=== PATIENT | male | born 1975 | race Caucasian/White ===

== ENCOUNTER → 2019-04-08 08:43 | Outpatient (CLI) | payer OTHER, SELFPAY ==
[2019-04-08 10:03] LABS: Add Manual Diff / Slide Review NO; Basophils Absolute Auto 100 /uL (0-100); Basophils Percent Auto 1.4 % (0-2); Eosinophils Absolute Auto 300 /uL (0-450); Eosinophils Percent Auto 4.6 % (2-4); Hematocrit 45.4 % (41-53); Hemoglobin 15.4 g/dL (13.5-17.5); Lymphocytes Absolute Auto 1100 /uL (1100-4500); Lymphocytes Percent Auto 18.1 % (25-40); Mean Corpuscular Hemoglobin 29.3 PG (26-34); Mean Corpuscular Volume 86.4 fL (80-100); Monocytes Absolute Auto 400 /uL (0-900); Monocytes Percent Auto 6.5 % (3-14); Neutrophils Absolute Auto 4000 /uL (1500-7000); Neutrophils Percent Auto 69.4 % (50-75); Platelet Count 207 X10^3/uL (150-400); Red Blood Cell Count 5.25 X10^6/uL (4.5-5.9); Red Cell Distribution Width 12.9 % (11.6-14.8); White Blood Cell Count 5.8 X10^3/uL (4.5-11.0)
[2019-04-08 10:16] LABS: Alanine Aminotransferase 28 IU/L (21-72); Albumin 4.4 g/dL (3.5-5.0); Albumin Globulin Ratio 1.4 (1.0-2.8); Alkaline Phosphatase 104 U/L (38-126); Aspartate Aminotransferase 30 IU/L (17-59); Bilirubin Total 0.8 mg/dL (0.2-1.3); Blood Urea Nitrogen 16 mg/dL (9-20); Calcium 9.2 mg/dL (8.4-10.2); Carbon Dioxide 28 mmol/L (22-32); Chloride 101 mmol/L (98-107); Estimated Glomerular Filt Rate > 60.0 mL/min (>60); Globulin 3.1 g/dL (1.7-4.1); Glucose 98 mg/dL (70-100); HEMOLYSIS < 15 (0-50); Potassium 4.1 mmol/L (3.4-5.1); Sodium 139 mmol/L (137-145); Total Protein 7.5 g/dL (6.3-8.2)
== END ==
PROVIDERS: Visit Provider Internal Medicine Cardiovascular Disease
DX: R07.89 Other chest pain (principal); I10 Essential (primary) hypertension
CPT/HCPCS: 36415; 80053; 85025

== ENCOUNTER 2020-01-29 23:49 | Emergency (ER) | payer OTHER, SELFPAY ==
--- NOTE | 2020-01-29 23:58 | DI.RAD.S_ITS ---
PROCEDURE: XR RIBS LT MIN 3V W CXR1V INDICATIONS: severe left sided rib pain, felt pop TECHNIQUE: 2 views of the lower left ribs were acquired, along with a single view chest. COMPARISON: None. FINDINGS: Surgical changes and devices: None. Bones and chest wall: No displaced left rib fractures or dislocations. No suspicious bony lesions. Overlying soft tissues appear unremarkable. Lungs and pleura: Perihilar interstitial prominence is identified bilaterally. There is no lobar consolidation, effusion, or pneumothorax. Mediastinum: Mediastinal contours appear normal. Heart size is normal. IMPRESSION: 1. No displaced left rib fractures. 2. Probable mild pulmonary vascular congestion. Dictated by: Víctor Mulligan M.D. on 01/30/2020 at 7:43 Approved by: Víctor Mulligan M.D. on 01/30/2020 at 7:44
[2020-01-29 23:59] VITALS: BP 145/87; PULSE 93; RESP 22; TEMP 36.6; O2SAT 96
--- NOTE | 2020-01-30 01:18 | ED.BACK ---
HPI - Back Pain/Injury General Chief Complaint: Back Pain/Injury Stated Complaint: left side rib pain injured it 2 days ago Time Seen by Provider: 01/29/20 23:50 Source: patient Mode of arrival: Ambulatory Limitations: no limitations History of Present Illness HPI Narrative: 45-year-old male daily smoker with noncontributory medical history presents with his and the chief complaint of left side rib pain. He states he lifted his left arm up and over his head a day and a half ago and felt a pop and now has significant pain with deep breath or motion or palpation. He occasionally feels some clicking in the left side ribs. He denies any shortness of breath and has no hemoptysis. Denies numbness, tingling or weakness. He denies any history of the same. MD Complaint: other Onset (ago): day(s) Duration: constant Location: left upper back Severity: severe Quality: sharp Relieving factors: immobilization Exacerbating factors: movement, deep breaths and coughing/sneezing Context: while lifting Associated symptoms: denies other symptoms Treatments prior to arrival: cold therapy, heat therapy, NSAIDS and acetaminophen Related Data Previous Rx's Medication Instructions Recorded cyclobenzaprine 10 mg PO TID PRN #14 tab 01/30/20 ketorolac 10 mg PO Q6H PRN #14 tab 01/30/20 lidocaine [Lidoderm] 1 patch TOP DAILY #15 each 01/30/20 Allergies Allergy/AdvReac Type Severity Reaction Status Date / Time Sulfa (Sulfonamide Allergy Unknown Verified 01/30/20 00:02 Antibiotics) Review of Systems Constitutional Constitutional: Denies chills, Denies fatigue, Denies fever(s), Denies frequent falls, Denies lethargy and Denies weakness Eyes Eyes: Denies change in vision, Denies eye discharge, Denies irritation and Denies loss of vision ENT Ears, Nose, Mouth, and Throat: Denies change in voice, Denies dizziness, Denies neck pain, Denies sore throat and Denies throat swelling Cardiovascular Cardiovascular: Denies chest pain, Denies irregular heart rhythm, Denies lightheadedness, Denies palpitations, Denies dyspnea, Denies dyspnea on exertion and Denies orthopnea Comments: chest wall pain Respiratory Respiratory: Denies cough, Denies dyspnea, Denies dyspnea on exertion and Denies wheezing Gastrointestinal Gastrointestinal: Denies abdominal pain, Denies change in bowel habits, Denies diarrhea, Denies nausea and Denies vomiting Musculoskeletal Musculoskeletal: Denies neck pain and Denies numbness Integumentary/Breasts Skin/Breast: Denies pruritus, Denies erythema, Denies rash and Denies wounds Neurologic Neurologic: Denies behavioral changes, Denies confusion, Denies dizziness, Denies frequent falls, Denies loss of vision, Denies numbness and Denies weakness Psychiatric Psychiatric: Denies anxiety, Denies behavioral changes, Denies confusion, Denies depression, Denies homicidal ideation and Denies suicidal ideation Endocrine Endocrine: Denies fatigue, Denies flushing and Denies palpitations Hematologic/Lymphatic Hematologic/Lymphatic: Denies easy bruising Allergic/Immunologic Allergic/Immunologic: Denies urticaria, Denies throat swelling and Denies wheezing Patient History Social History Smoking Status: Current some day smoker Smoking Status: Current some day smoker alcohol intake frequency: a few times a month Substance Use Type: marijuana Exam Narrative Exam Narrative: GEN: AOx3 and in mild distress, patient obviously in pain splinting his left-sided ribs EYES: Pupils are equal, round, and reactive to light and accommodation. Extraoccular muscles are intact bilaterally. There is no subconjunctival hemorrhage or exudate. CHEST: Lungs are clear to auscultation bilaterally and free of wheezes, rales, or rhonchi. Heart rate is regular rhythm, there are no murmurs, clicks, rubs, or gallops. Sharp and stabbing pinpoint pain left lateral ribs. No crepitance, subcu emphysema, rash, redness, swelling or external manifestation of injury or disease ABD: Abdomen is soft and nontender. There is no guarding or rebound. Bowel sounds are normal in all 4 quadrants. There is no mass or organomegaly. EXT: Full painless ROM of all extremities with no loss of sensation or strength. SKIN: Warm, pink, and dry. No erythema or rash Initial Vital Signs Initial Vital Signs: Vital Signs Temperature 97.9 F 01/29/20 23:59 Pulse Rate 93 H 01/29/20 23:59 Respiratory Rate 22 01/29/20 23:59 Blood Pressure 145/87 H 01/29/20 23:59 Pulse Oximetry 96 01/29/20 23:59 Procedures Orthopedic Splinting/Casting Injury #1: Side: left Upper Extremity Immobilizer: sling/shoulder immobilizer Post splinting neuro exam: intact Post splinting vascular exam: intact Placed by: Nursing Course Orders Ordered: Discontinued Medications Hydrocodone Bitart/Acetaminophen (Vicodin 5/325 Prepack) 1 bottle MISC SEEINSTR ONE Stop: 01/30/20 01:15 Last Admin: 01/30/20 01:31 Dose: 1 bottle Documented by: MMCFARL Cyclobenzaprine HCl (Flexeril 10 Mg Prepack) 1 bottle MISC SEEINSTR ONE Stop: 01/30/20 01:15 Last Admin: 01/30/20 01:31 Dose: 1 bottle Documented by: MMCFARL Ketorolac Tromethamine (Toradol) 15 mg IV NOW ONE Stop: 01/30/20 01:15 Last Admin: 01/30/20 01:31 Dose: 15 mg Documented by: MMCFARL Lidocaine (Lidoderm) 1 each TOP NOW ONE Stop: 01/30/20 01:15 Last Admin: 01/30/20 01:32 Dose: 1 each Documented by: MMCFARL Vital Signs Vital signs: Vital Signs - 8 hr 01/29/20 23:59 Temperature 97.9 F Pulse Rate 93 H Respiratory Rate 22 Blood Pressure 145/87 H Pulse Oximetry 96 MDM - Back Pain/Injury Imaging Data Chest x-ray: Radiologist's Impression: [address] [address] XRay Report Signed Patient: CHEPE ARMIJO PMR#: [id number] : 1975Acct:[id number] Age/Sex: 45 / MDate of Service: 01/29/20 Loc: ED Accession Number: [id number] Procedure: XR ribs LT min 3V w CXR1V Ordering Provider: Roel Ha D.O. PROCEDURE: XR RIBS LT MIN 3V W CXR1V INDICATIONS: severe left sided rib pain, felt pop TECHNIQUE: 2 views of the lower left ribs were acquired, along with a single view chest. COMPARISON: None. FINDINGS: Surgical changes and devices: None. Bones and chest wall: No displaced left rib fractures or dislocations. No suspicious bony lesions. Overlying soft tissues appear unremarkable. Lungs and pleura: Perihilar interstitial prominence is identified bilaterally. There is no lobar consolidation, effusion, or pneumothorax. Mediastinum: Mediastinal contours appear normal. Heart size is normal. IMPRESSION: 1. No displaced left rib fractures. 2. Probable mild pulmonary vascular congestion. Dictated by: Víctor Mulligan M.D. on 01/30/2020 at 7:43 Approved by: Víctor Mulligan M.D. on 01/30/2020 at 7:44 Discharge Plan Departure Patient Disposition: Home Clinical Impression: Painful rib Discharge Date/Time: 01/30/20 01:47 Instructions: DI for Muscle Strain Activity Restrictions/Additional Instructions: *You have been diagnosed with [left-sided rib strain] *What to do: *Take medications as directed *Follow up with your primary care provider in 2-3 days, call for an appointment. Let them know you were seen in the Emergency Department and that we ask that you be seen in follow up *Return to ER if you should have any new, worsening or concerning symptoms Radiographic study has been interpreted by an emergency physician. The official diagnosis by radiology will be performed within the next 24 hours and should there be any change in outcome we will notify you of how to proceed. Prescriptions: New cyclobenzaprine 10 mg tablet 10 mg PO TID PRN (Reason: muscle spasm) Qty: 14 RF: 0 ketorolac 10 mg tablet 10 mg PO Q6H PRN (Reason: pain) Qty: 14 RF: 0 lidocaine [Lidoderm] 5 % adhesive patch,medicated 1 patch TOP DAILY Qty: 15 RF: 0
[2020-01-30] MEDS: CYCLOBENZAPRINE 10 MG PREPACK 1 BOTTLE MISC (01:31)
[2020-01-30] MEDS: HYDROCODONE/ACET 5/325 PREPACK 1 BOTTLE MISC (01:31)
[2020-01-30] MEDS: KETOROLAC 60 MG/2 ML VIAL 15 MG IV (01:31)
[2020-01-30] MEDS: LIDOCAINE PATCH 1 EACH ADH..PATCH TOP (01:32)
== END 2020-01-30 01:47 | disposition home or self-care (01) ==
PROVIDERS: Emergency Provider Emergency Medicine
DX: R07.81 Pleurodynia (principal)
CPT/HCPCS: 71101; 96374; 99283; 99284; J1885

== ENCOUNTER 2021-09-25 19:15 | Emergency (ER) | payer OTHER, MEDICAID, SELFPAY ==
[2021-09-25 19:43] VITALS: BP 135/85; PULSE 111; RESP 18; TEMP 36.8; O2SAT 94; BMI 28.5
--- NOTE | 2021-09-25 19:49 | DI.RAD.S_ITS ---
PROCEDURE: XR WRIST RT MIN 3V INDICATIONS: punched a wall/ swelling and pain TECHNIQUE: 3 views of the wrist were acquired. COMPARISON: None. FINDINGS: Bones: There is a comminuted fracture at the base of the 5th metacarpal with intra-articular involvement. No suspicious bony lesions. Soft tissues: No suspicious soft tissue calcifications. IMPRESSION: A comminuted fracture at the base of the 5th metacarpal. Dictated by: Keegan Alvares M.D. on 09/25/2021 at 20:16 Approved by: Keegan Alvares M.D. on 09/25/2021 at 20:18
--- NOTE | 2021-09-25 19:49 | DI.RAD.S_ITS ---
PROCEDURE: XR HAND RT MIN 3V INDICATIONS: punched a wall/ swelling and pain TECHNIQUE: 3 views of the hand(s) acquired. COMPARISON: [facility], CR, XR WRIST RT MIN 3V, 09/25/2021, 19:48. FINDINGS: Bones: There is a comminuted, mildly displaced fracture at the base of the 5th metacarpal with intra-articular involvement. Carpal bones are normally aligned. No suspicious bony lesions. Soft tissues: No suspicious soft tissue calcifications. Soft tissue swelling at the base of the 5th metacarpal. IMPRESSION: 5th metacarpal base fracture. Dictated by: Keegan Alvares M.D. on 09/25/2021 at 20:18 Approved by: Keegan Alvares M.D. on 09/25/2021 at 20:20
[2021-09-25] MEDS: IBUPROFEN 400 MG TABLET 800 MG PO (21:40)
[2021-09-25] MEDS: MORPHINE 4 MG/ML INJ (23:57)
[2021-09-26 00:02] VITALS: BP 123/68; PULSE 69; O2SAT 96
[2021-09-26 00:30] VITALS: PULSE 62; O2SAT 94
[2021-09-26 01:00] VITALS: PULSE 63; O2SAT 95
[2021-09-26 01:30] VITALS: PULSE 61; O2SAT 94
--- NOTE | 2021-09-26 01:42 | ED_ITS ---
HPI - Extremity Injury (Upper) General Chief Complaint: Extremity Injury, Upper Stated Complaint: RIGHT HAND INJURY SWELLING Time Seen by Provider: 09/26/21 01:42 Source: patient Mode of arrival: Ambulatory Limitations: no limitations History of Present Illness HPI narrative: This is a 46-year-old male comes emergency department after punching a wall and states there was likely a stud behind the area and has pain in his right hand and swelling. Patient states this was 2 days ago the pain and swelling has worsened and not resolved so he came for evaluation. Patient has some bruising as well. He does not have any loss of sensation. No tingling. He is able to flex and extend his fingers. He does have some pain into the wrist. Patient denies any other injuries. He states he has a history of PTSD and had a very frustrating day on multiple levels and expressed his anger right. Patient states no daily medications. He is allergic to sulfa. Patient denies any other injuries. Related Data Previous Rx's Medication Instructions Recorded cyclobenzaprine 10 mg tablet 10 mg PO TID PRN #14 tab 01/30/20 ketorolac 10 mg tablet 10 mg PO Q6H PRN #14 tab 01/30/20 lidocaine 5 % topical patch 1 patch TOP DAILY #15 each 01/30/20 (Lidoderm) oxycodone 5 mg tablet 10 mg PO QID PRN #20 tab 09/26/21 Allergies Allergy/AdvReac Type Severity Reaction Status Date / Time Sulfa (Sulfonamide Allergy Unknown Verified 01/30/20 00:02 Antibiotics) Review of Systems Review of Systems ROS Unobtainable: All systems reviewed & are unremarkable except as noted in HPI and below Patient History Social History Smoking Status: Current some day smoker Smoking Status: Current some day smoker alcohol intake frequency: a few times a month Substance Use Type: marijuana Exam Narrative Exam Narrative: GENERAL: Alert and oriented x three, mild distress. HEENT: Head normocephalic, atraumatic, EOMI, pupils reactive, face symmetric, moist mucous membranes NECK: Supple, full range of motion CARDIOVASCULAR: Regular rate and rhythm without murmurs, rubs or gallops. RESPIRATORY: Breath sounds equal bilaterally, no wheezes rales or rhonchi. EXTREMITIES: Normal range of motion, no clubbing. Patient has swelling of his right hand with bruising over the palmar side of the metacarpal and dorsum as well. Patient has tenderness the proximal metacarpal. No obvious angulation. He has full range of motion with flexion extension and 80, HGB duction of all 5 fingers. Cap refills less than 2 seconds in all 5 fingers with 2+ radial pulse. Sensation to light touch intact throughout the hand. Patient does not have bony tenderness of the wrist or forearm. He has 2 small blood blisters on his 2nd finger and 4th finger but no lacerations and skin appears intact. NEUROLOGICAL: Cranial nerves II through XII grossly intact. Moving all extremities SKIN: Warm, dry, no petechiae, no rashes or lesions. Initial Vital Signs Initial Vital Signs: Vital Signs Temperature 98.2 F 09/25/21 19:43 Pulse Rate 111 H 09/25/21 19:43 Respiratory Rate 18 09/25/21 19:43 Blood Pressure 135/85 09/25/21 19:43 Pulse Oximetry 94 09/25/21 19:43 Course Orders Ordered: Discontinued Medications Ibuprofen (Ibuprofen 400 Mg Tablet) 800 mg PO NOW ONE Stop: 09/25/21 21:36 Last Admin: 09/25/21 21:40 Dose: 800 mg Documented by: AREN Morphine Sulfate (Morphine 4 Mg/Ml Inj) 4 mg IM NOW ONE Stop: 09/25/21 23:57 Last Admin: 09/25/21 23:57 Dose: Not Given Documented by: SRINIVAS Oxycodone/Acetaminophen (Oxycodone/Apap 5/325 Prepack) 1 bottle MISC SEEINSTR ONE Stop: 09/26/21 01:54 Last Admin: 09/26/21 02:04 Dose: 1 bottle Documented by: AREN Reevaluation(s) Reevaluation #1: Patient placed in ulnar gutter splint by nursing. Neurovascularly intact. Consultations Consultation #1: Dr. Up, orthopedic surgery. Ask for ulnar gutter splint and follow-up with office. Time: 01:59 Vital Signs Vital signs: Vital Signs - 8 hr 09/26/21 00:02 09/26/21 00:30 09/26/21 01:00 Pulse Rate 69 62 63 Blood Pressure 123/68 Pulse Oximetry 96 94 95 09/26/21 01:30 09/26/21 02:00 09/26/21 02:15 Pulse Rate 61 60 Blood Pressure 104/77 Pulse Oximetry 94 94 MDM - Extremity Injury (Upper) Imaging Data Extremity x-ray #1: Radiologist's Impression: [address] [address] XRay Report Signed Patient: Aj Carroll MR#: [id number] : 1975 Acct:[id number] Age/Sex: 46 / M Date of Service: 09/25/21 Loc: ED Accession Number: [id number] ?? Procedure: XR wrist RT min 3V Ordering Provider: Radha Diaz D.O. PROCEDURE:? XR WRIST RT MIN 3V ? INDICATIONS: punched a wall/ swelling and pain ? TECHNIQUE:? 3 views of the wrist were acquired.? ? COMPARISON:? None. ? FINDINGS:? ? Bones:? There is a comminuted fracture at the base of the 5th metacarpal with intra-articular involvement.? No suspicious bony lesions.? ? Soft tissues:? No suspicious soft tissue calcifications.? ? IMPRESSION:? A comminuted fracture at the base of the 5th metacarpal. ? ? Dictated by: Keegan Alvares M.D. on 09/25/2021 at 20:16 ? ? Approved by: Keegan Alvares M.D. on 09/25/2021 at 20:18?? Extremity x-ray #2: Radiologist's Impression: Close Wrist X-Ray (Signed) Leticia Alvares - 09/25/21 Hand X-Ray (Signed) Leticia Alvares - 09/25/21 Ribs X-Ray (Signed) Víctor Mulligan - 01/29/20 Launch?Image [address] [address] XRay Report Signed Patient: Aj Carroll MR#: [id number] : 1975 Acct:[id number] Age/Sex: 46 / M Date of Service: 09/25/21 Loc: ED Accession Number: [id number] ?? Procedure: XR hand RT min 3V Ordering Provider: Radha Diaz D.O. PROCEDURE:? XR HAND RT MIN 3V ? INDICATIONS:? punched a wall/ swelling and pain ? TECHNIQUE:? 3 views of the hand(s) acquired.? ? COMPARISON:? [facility], CR, XR WRIST RT MIN 3V, 09/25/2021, 19:48. ? FINDINGS:? ? Bones:? There is a comminuted, mildly displaced fracture at the base of the 5th metacarpal with intra-articular involvement.? Carpal bones are normally aligned.? No suspicious bony lesions.? ? Soft tissues:? No suspicious soft tissue calcifications.? Soft tissue swelling at the base of the 5th metacarpal. ? ? IMPRESSION:? 5th metacarpal base fracture. ? ? Dictated by: Keegan Alvares M.D. on 09/25/2021 at 20:18 ? ? Approved by: Keegan Alvares M.D. on 09/25/2021 at 20:20? MDM Narrative Medical decision making narrative: This is a 46-year-old male with pain and swelling and comminuted metacarpal fracture of the 5th metatarsal in his right hand after punching a wall 2 days prior. Patient was given narcotics for pain control. Orthopedic surgery is consulted will follow with the patient. Patient is placed in ulnar gutter splint at the recommendation and plan for follow-up. Discharge Plan Departure Patient Disposition: Home Clinical Impression: Fracture of base of fifth metacarpal bone Instructions: Hand Fracture Activity Restrictions/Additional Instructions: Follow-up with orthopedic surgery this week. Call for an appointment tomorrow. Take pain medications as prescribed. This medication can make you sleepy do not drive, perform hazardous activities or make any major decisions while taking it. This medication will make you constipated please take a stool softener once to twice daily until stools are soft and regular. Prescription sent to [facility]. Splint Care: Keep splint clean and dry. Elevated affected body part to decrease swelling. OK to use ice pack on the affected body part. Use for 15-20 minutes each time, for 5-6x per day. If you develop worsening pain, numbness, tingling, discoloration of the affected body part, loosen the splint by loosening the RISHI wrap, and either see your doctor for an urgent re-assessment, or return to the Emergency Department. Return to the Emergency Department for any new or worsening symptoms. Prescriptions: New oxycodone 5 mg tablet 10 mg PO QID PRN (Reason: pain) Qty: 20 0RF No Action cyclobenzaprine 10 mg tablet 10 mg PO TID PRN (Reason: muscle spasm) Qty: 14 0RF ketorolac 10 mg tablet 10 mg PO Q6H PRN (Reason: pain) Qty: 14 0RF lidocaine [Lidoderm] 5 % adhesive patch,medicated 1 patch TOP DAILY Qty: 15 0RF Rx Instructions: leave on most painful area for 12 hrs Referrals: Radha Up MD [Physician] -
[2021-09-26 02:00] VITALS: PULSE 60; O2SAT 94
[2021-09-26] MEDS: OXYCODONE/APAP 5/325 PREPACK 1 BOTTLE MISC (02:04)
[2021-09-26 02:15] VITALS: BP 104/77
== END 2021-09-26 02:16 | disposition home or self-care (01) ==
PROVIDERS: Emergency Provider Emergency Medicine
DX: S62.316A Displaced fracture of base of fifth metacarpal bone, right hand, initial encounter for closed fracture (principal); F17.200 Nicotine dependence, unspecified, uncomplicated; W22.01XA Walked into wall, initial encounter
CPT/HCPCS: 29125; 73110; 73130; 99283; 99284; J2270

== ENCOUNTER 2025-07-20 14:33 | Inpatient (IN) | payer OTHER, SELFPAY ==
[2025-07-20] VITALS (17 sets, daily range): BP systolic 104–144; BP diastolic 72–106; PULSE 41–109; RESP 21–28; TEMP 36.4–36.6; O2SAT 98–100; BMI 22.9
--- NOTE | 2025-07-20 | DI.ECHO.S_ITS ---
[facility] : : [address] : : [place] : : [id number] : : Phone: [phone] Echocardiogram Report + + :Name: CHEPE ARMIJO Study Date: 07/21/2025 Height: 70 in : :[facility] ReadingLocation: Weight: 160 lb : : Gender: Male BSA: 1.9 m2 : :: 1975 Age: 50 yrs BP: 104/72 mmHg: :Reason For Study: CONGESTIVE HEART FAILURE : :Ordering Physician: ALVA, : :ZHAO Austin Performed By: Tony Chong : :Referring: ZHAO CALLE : + + Interpretation Summary - The left ventricular contractility is severely compromised. Estimated ejection fraction approximately 15 to 20% with severe global hypokinesis. No LVH. Grade 2 diastolic dysfunction. - The right ventricular contractility is normal. - Four-chamber cardiac enlargement noted. LVEDD is 7.4 cm. - Mild mitral regurgitation. - Mild to moderate eccentric tricuspid regurgitation with estimated pulmonary systolic artery pressures of 51 mmHg. - No obvious intracardiac shunts. - No obvious intracardiac masses nor thrombi. - No hemodynamically significant pericardial effusion. - Elevated right-sided filling pressures. Conclusion: Severely compromised left ventricular systolic function with four-chamber cardiac enlargement and mild to moderate valvular insufficiencies. Procedure: A two-dimensional transthoracic echocardiogram with color flow and Doppler was performed. The study quality was technically good. There is no prior echocardiogram noted for this patient. The patient was in normal sinus rhythm during the exam. Left Ventricle: The left ventricle is moderate-severely dilated. There is normal left ventricular wall thickness. There is no ventricular septal defect visualized. The ejection fraction is estimated to be 15-20%. There is severe global hypokinesis of the left ventricle. Grade II diastolic dysfunction with elevated left atrial pressure. Right Ventricle: The right ventricle is severely dilated. The right ventricular systolic function is normal. Atria: The left atrium is severely dilated. The right atrium is severely dilated. There is no Doppler evidence for an interatrial shunt. Mitral Valve: The mitral valve leaflets appear mildly thickened. There is mild mitral regurgitation. Aortic Valve: The aortic valve is trileaflet. No aortic regurgitation is present. Tricuspid Valve: The tricuspid valve leaflets are thin and pliable. There is mild to moderate tricuspid regurgitation. The right ventricular systolic pressure is estimated to be at least 51 mmHg based on an estimated right atrial pressure of 15 mm Hg. Pulmonic Valve: The pulmonic valve is not well seen, but is grossly normal. There is trace pulmonic regurgitation. Great Vessels: The aortic root is normal size. The dimensions of the ascending aorta are normal. The pulmonary artery is normal size. The IVC is dilated (diameter is greater than 2.1 cm) and it collapses less than 50% with a sniff. This suggests a high right atrial pressure of 15 mm Hg. Pericardium/ Pleura There is no pericardial effusion. There is no pleural effusion. MMode/2D Measurements & Calculations LVIDd: 7.4 cm LVOT diam: 2.1 cm LVIDs: 6.7 cm Ao root diam: 3.4 cm FS: 9.4 % asc Aorta Diam: 3.4 cm EPSS: 2.5 cm IVSd: 0.98 cm LVPWd: 1.0 cm LV deras. diameter/BSA (cm/m^2): 3.9 LV sys. diameter/BSA (cm/m^2): 3.5 LA A2 area: 31.0 cm2 RA long axis: 6.7 cm LA A4 area: 37.9 cm2 RA area: 34.9 cm2 LA length (vol): 7.7 cm RA vol: 153.6 ml LA vol: 130.1 ml RA : 80.9 ml/m2 LA vol index: 68.5 ml/m2 IVC diam: 3.5 cm RVD1 (basal): 4.8 cm RVD2 (mid): 3.1 cm TAPSE: 2.2 cm Doppler Measurements & Calculations Ao V2 max: 116.6 cm/sec LVOT Max Sorin: 86.5 cm/sec Ao V2 mean: 87.0 cm/sec LV V1 max P.0 mmHg Ao max P.4 mmHg LV V1 VTI: 17.9 cm Ao mean P.3 mmHg VALENCIA(I,D): 2.7 cm2 Ao V2 VTI: 22.2 cm VALENCIA(V,D): 2.5 cm2 sev ratio: 0.81 VALENCIA indexed to BSA (cm^2/m^2): 1.4 MV E max sorin: 71.9 cm/sec TR max sorin: 299.4 cm/sec MV A max sorin: 68.6 cm/sec TR max P.9 mmHg MV E/A: 1.0 PA V2 max: 103.4 cm/sec Med Peak E' Sorin: 4.8 cm/sec PA V2 mean: 71.2 cm/sec E/E' med: 15.0 PA mean P.2 mmHg Lat Peak E' Sorin: 4.2 cm/sec PA pr(Accel): 32.8 mmHg E/E' lat: 17.0 E/e' average: 16.0 MV dec time: 0.13 sec SV(LVOT): 59.5 ml Reading Physician:RUSS
--- NOTE | 2025-07-20 14:49 | EKG_ITS ---
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
--- NOTE | 2025-07-20 14:54 | DI.RAD.S_ITS ---
PROCEDURE: XR CHEST 1V INDICATIONS: Chest Pain TECHNIQUE: One view of the chest was acquired. COMPARISON: None. FINDINGS: Surgical changes and devices: None. Lungs and pleura: Low lung volumes but otherwise lungs are clear. No pleural effusions or pneumothorax. Mediastinum: Mediastinal contours appear normal. Heart size is normal. Bones and chest wall: No suspicious bony lesions. Overlying soft tissues appear unremarkable. IMPRESSION: Low lung volumes, but otherwise lungs are clear. Approved by: Susana Mortensen M.D.,Ph.D. on 07/20/2025 at 16:02
--- NOTE | 2025-07-20 15:23 | ED_ITS ---
HPI - Chest Pain General Chief Complaint: Chest Pain Stated Complaint: CHF, SOB, Fatigue, Time Seen by Provider: 07/20/25 15:05 Source: patient Mode of arrival: Family Vehicle Limitations: no limitations History of Present Illness HPI narrative: This is a 50-year-old white male with a history of cardiomyopathy with a LVEF of 25% also a history of pulmonary embolism on he thinks Eliquis but he has not been taking it regularly who presents to the emergency room with increased weakness and shortness of breath patient admits to orthopnea no chest pain pressure heaviness no pedal edema no fevers or chills patient appears tachypneic and in mild respiratory distress. Related Data Previous Rx's ?Medication ?Instructions ?Recorded cyclobenzaprine 10 mg tablet 10 mg PO TID PRN muscle s pasm #14 01/30/20 tabs ketorolac 10 mg tablet 10 mg PO Q6H PRN pain #14 ta bs 01/30/20 lidocaine 5 % topical patch 1 patch topical DAILY #15 ea 01/30/20 (Lidoderm) oxycodone 5 mg tablet 10 mg (2 x 5 mg) PO QID PRN pain 09/26/21 #20 tabs Allergies Allergy/AdvReac Type Severity Reaction Status Date / Time Sulfa (Sulfonamide Allergy Unknown Verified 07/20/25 14:45 Antibiotics) Review of Systems Review of Systems Narrative: GENERAL: Denies chills, fatigue, malaise, fever, sweats. HEENT: Denies sinus pain, ear pain, sore throat, difficulty swallowing, dizziness. RESPIRATORY: See HPI CARDIOVASCULAR: Denies chest pain, palpitations, orthopnea, edema, GASTROINTESTINAL: Denies nausea, vomiting, abdominal pain, diarrhea, constipation, melena. : Denies dysuria, frequency, incontinence, hematuria, urinary retention. MUSCULOSKELETAL: denies weakness, joint pain, or bony pain SKIN: Denies rash, skin lesions, or other NEUROLOGIC: Denies weakness, headache, numbness, change in speech, confusion, seizures, incoordination. PSYCHIATRIC: No concerning psychosocial issues. 12 point review of systems is negative except for those stated above Patient History Social History Smoking Status: Former smoker Smoking Status: Former smoker tobacco type: cigarettes alcohol intake frequency: a few times a month Exam Narrative Exam Narrative: GENERAL: [] year old patient appears stated age. Well-developed patient, in mild distress. HEAD: Atraumatic. Normocephalic. EYES: Pupils equal round and reactive. Extraocular motions intact. No scleral icterus. No injection or drainage. ENT: Nose without bleeding, purulent drainage. Throat without erythema, tonsillar hypertrophy or exudate. Airway patent. NECK: Trachea midline. Non tender CARDIOVASCULAR: Regular rate and rhythm without murmurs, gallops, or rubs. RESPIRATORY: Clear to auscultation. Breath sounds equal bilaterally. No wheezes, rales, or rhonchi. GASTROINTESTINAL: Abdomen soft, non-tender, nondistended. EXTREMITIES: No edema or joint tenderness. BACK: Nontender without deformity or crepitance. No flank tenderness. NEURO: AOx3. SKIN: No rash or erythema of visible areas Initial Vital Signs Initial Vital Signs: Vital Signs Temperature 97.6 F 07/20/25 14:45 Pulse Rate 41 L 07/20/25 14:45 Respiratory Rate 22 07/20/25 14:45 Blood Pressure 127/87 07/20/25 14:45 Pulse Oximetry 100 07/20/25 14:45 Oxygen Delivery Method Room Air 07/20/25 14:45 Course Orders Ordered: ED Orders 07/20/25 14:54 XR chest 1V Stat EKG-12 Lead Stat 07/20/25 15:08 Complete Blood Count AUTO DIFF Stat Comprehensive Metabolic Panel Stat Creatine Kinase Stat D Dimer Stat Lipase Stat Magnesium Stat NT-proBNP (BNP-Adult 18+) Stat PTT Partial Thromboplastin Aayush Stat Prothrombin Time INR Stat Troponin I Stat 07/20/25 15:20 Arterial Blood Gas STAT 07/20/25 15:21 EKG-12 Lead Stat 07/20/25 15:30 Covid-19 + FLU A/B + RSV - PCR Stat 07/20/25 16:40 CT angio chest PE protocol Stat 07/20/25 18:06 Blood Culture Stat Lactate (Lactic Acid) Stat Discontinued Medications Albuterol/Ipratropium (Albuterol/Ipratropium 3 Ml Ampul) 3 ml INH NOW ONE Stop: 07/20/25 18:07 Aspirin (Aspirin 81 Mg Chew Tab) 324 mg PO NOW ONE Stop: 07/20/25 14:55 Dexamethasone (Dexamethasone 10 Mg/Ml Vial) 10 mg IV NOW ONE Stop: 07/20/25 18:07 Furosemide 60 mg/ Sodium (Chloride) 56 mls @ 112 mls/hr IV NOW ONE Stop: 07/20/25 18:05 Ceftriaxone Sodium 1,000 mg/ (Sodium Chloride) 100 mls @ 200 mls/hr IV NOW ONE Stop: 07/20/25 18:07 Azithromycin 500 mg/ Dextrose 250 mls @ 250 mls/hr IV NOW ONE Stop: 07/20/25 18:07 Lorazepam (Lorazepam 2 Mg/Ml Inj) 0.5 mg IV NOW ONE Stop: 07/20/25 17:17 Last Admin: 07/20/25 17:18 Dose: 0.5 mg Documented By: DENA Vital Signs Vital signs: Vital Signs - 8 hr 07/20/25 14:45 07/20/25 15:06 07/20/25 15:07 Temperature 97.6 F Pulse Rate 41 L 74 Respiratory Rate 22 24 21 Blood Pressure 127/87 Pulse Oximetry 100 100 100 Oxygen Delivery Method Room Air 07/20/25 15:07 07/20/25 15:30 07/20/25 15:30 Temperature Pulse Rate 94 H Respiratory Rate Blood Pressure 121/91 H 126/96 H Pulse Oximetry 99 Oxygen Delivery Method 07/20/25 16:00 07/20/25 16:30 07/20/25 16:30 Temperature Pulse Rate 101 H 100 H Respiratory Rate 24 21 Blood Pressure 139/106 H Pulse Oximetry 99 98 Oxygen Delivery Method 07/20/25 17:00 07/20/25 17:21 07/20/25 17:21 Temperature Pulse Rate 101 H 97 H Respiratory Rate Blood Pressure 144/99 H Pulse Oximetry 99 99 Oxygen Delivery Method 07/20/25 17:30 07/20/25 17:33 07/20/25 17:33 Temperature Pulse Rate 95 H 95 H Respiratory Rate 21 Blood Pressure 138/93 H Pulse Oximetry 98 98 Oxygen Delivery Method MDM - Chest Pain Lab Data 07/20/25 15:08 07/20/25 15:08 Labs: Lab Results 07/20/25 07/20/25 07/20/25 Range/Units 15:08 15:08 15:08 WBC Cancelled 8.3 RBC Cancelled 4.56 Hgb Cancelled Hct MCV MCH MCHC RDW Plt Count Neut % (Auto) Lymph % (Auto) Mcdowell % (Auto) Eos % (Auto) Baso % (Auto) Neut # (Auto) Lymph # (Auto) Mcdowell # (Auto) Eos # (Auto) Baso # (Auto) PT INR APTT D-Dimer (<500) ng/ml Sodium Potassium Chloride Carbon Dioxide BUN Creatinine Estimated GFR BUN/Creatinine Ratio Glucose Calcium Magnesium (1.6-2.3) mg/dL Total Bilirubin AST ALT Alkaline Phosphatase Total Creatine Kinase (55-170) U/L Troponin I NT-Pro-B Natriuret Pep Total Protein Albumin Globulin Albumin/Globulin Ratio Lipase (23-300) U/L SARS-CoV-2 (PCR) (Negative) Influenza A (RT-PCR) (NEGATIVE) Influenza B (RT-PCR) (NEGATIVE) RSV (PCR) (Negative) 07/20/25 07/20/25 07/20/25 Range/Units 15:08 15:08 15:08 WBC RBC Hgb 12.5 L Hct Cancelled 38.2 L MCV Cancelled 83.8 MCH Cancelled MCHC RDW Plt Count Neut % (Auto) Lymph % (Auto) Mcdowell % (Auto) Eos % (Auto) Baso % (Auto) Neut # (Auto) Lymph # (Auto) Mcdowell # (Auto) Eos # (Auto) Baso # (Auto) PT INR APTT D-Dimer (<500) ng/ml Sodium Potassium Chloride Carbon Dioxide BUN Creatinine Estimated GFR BUN/Creatinine Ratio Glucose Calcium Magnesium (1.6-2.3) mg/dL Total Bilirubin AST ALT Alkaline Phosphatase Total Creatine Kinase (55-170) U/L Troponin I NT-Pro-B Natriuret Pep Total Protein Albumin Globulin Albumin/Globulin Ratio Lipase (23-300) U/L SARS-CoV-2 (PCR) (Negative) Influenza A (RT-PCR) (NEGATIVE) Influenza B (RT-PCR) (NEGATIVE) RSV (PCR) (Negative) 07/20/25 07/20/25 07/20/25 Range/Units 15:08 15:08 15:08 WBC RBC Hgb Hct MCV MCH 27.5 MCHC Cancelled 32.8 RDW Cancelled 21.1 H Plt Count Cancelled Neut % (Auto) Lymph % (Auto) Mcdowell % (Auto) Eos % (Auto) Baso % (Auto) Neut # (Auto) Lymph # (Auto) Mcdowell # (Auto) Eos # (Auto) Baso # (Auto) PT INR APTT D-Dimer (<500) ng/ml Sodium Potassium Chloride Carbon Dioxide BUN Creatinine Estimated GFR BUN/Creatinine Ratio Glucose Calcium Magnesium (1.6-2.3) mg/dL Total Bilirubin AST ALT Alkaline Phosphatase Total Creatine Kinase (55-170) U/L Troponin I NT-Pro-B Natriuret Pep Total Protein Albumin Globulin Albumin/Globulin Ratio Lipase (23-300) U/L SARS-CoV-2 (PCR) (Negative) Influenza A (RT-PCR) (NEGATIVE) Influenza B (RT-PCR) (NEGATIVE) RSV (PCR) (Negative) 07/20/25 07/20/25 07/20/25 Range/Units 15:08 15:08 15:08 WBC RBC Hgb Hct MCV MCH MCHC RDW Plt Count 231 Neut % (Auto) Cancelled 63.1 Lymph % (Auto) Cancelled 25.8 Mcdowell % (Auto) Cancelled Eos % (Auto) Baso % (Auto) Neut # (Auto) Lymph # (Auto) Mcdowell # (Auto) Eos # (Auto) Baso # (Auto) PT INR APTT D-Dimer (<500) ng/ml Sodium Potassium Chloride Carbon Dioxide BUN Creatinine Estimated GFR BUN/Creatinine Ratio Glucose Calcium Magnesium (1.6-2.3) mg/dL Total Bilirubin AST ALT Alkaline Phosphatase Total Creatine Kinase (55-170) U/L Troponin I NT-Pro-B Natriuret Pep Total Protein Albumin Globulin Albumin/Globulin Ratio Lipase (23-300) U/L SARS-CoV-2 (PCR) (Negative) Influenza A (RT-PCR) (NEGATIVE) Influenza B (RT-PCR) (NEGATIVE) RSV (PCR) (Negative) 07/20/25 07/20/25 07/20/25 Range/Units 15:08 15:08 15:08 WBC RBC Hgb Hct MCV MCH MCHC RDW Plt Count Neut % (Auto) Lymph % (Auto) Mcdowell % (Auto) 9.2 Eos % (Auto) Cancelled 1.5 L Baso % (Auto) Cancelled 0.4 Neut # (Auto) Cancelled Lymph # (Auto) Mcdowell # (Auto) Eos # (Auto) Baso # (Auto) PT INR APTT D-Dimer (<500) ng/ml Sodium Potassium Chloride Carbon Dioxide BUN Creatinine Estimated GFR BUN/Creatinine Ratio Glucose Calcium Magnesium (1.6-2.3) mg/dL Total Bilirubin AST ALT Alkaline Phosphatase Total Creatine Kinase (55-170) U/L Troponin I NT-Pro-B Natriuret Pep Total Protein Albumin Globulin Albumin/Globulin Ratio Lipase (23-300) U/L SARS-CoV-2 (PCR) (Negative) Influenza A (RT-PCR) (NEGATIVE) Influenza B (RT-PCR) (NEGATIVE) RSV (PCR) (Negative) 07/20/25 07/20/25 07/20/25 Range/Units 15:08 15:08 15:08 WBC RBC Hgb Hct MCV MCH MCHC RDW Plt Count Neut % (Auto) Lymph % (Auto) Mcdowell % (Auto) Eos % (Auto) Baso % (Auto) Neut # (Auto) 5200 Lymph # (Auto) Cancelled 2100 Mcdowell # (Auto) Cancelled 800 Eos # (Auto) Cancelled Baso # (Auto) PT INR APTT D-Dimer (<500) ng/ml Sodium Potassium Chloride Carbon Dioxide BUN Creatinine Estimated GFR BUN/Creatinine Ratio Glucose Calcium Magnesium (1.6-2.3) mg/dL Total Bilirubin AST ALT Alkaline Phosphatase Total Creatine Kinase (55-170) U/L Troponin I NT-Pro-B Natriuret Pep Total Protein Albumin Globulin Albumin/Globulin Ratio Lipase (23-300) U/L SARS-CoV-2 (PCR) (Negative) Influenza A (RT-PCR) (NEGATIVE) Influenza B (RT-PCR) (NEGATIVE) RSV (PCR) (Negative) 07/20/25 07/20/25 07/20/25 Range/Units 15:08 15:08 15:08 WBC RBC Hgb Hct MCV MCH MCHC RDW Plt Count Neut % (Auto) Lymph % (Auto) Mcdowell % (Auto) Eos % (Auto) Baso % (Auto) Neut # (Auto) Lymph # (Auto) Mcdowell # (Auto) Eos # (Auto) 100 Baso # (Auto) Cancelled 0 PT Cancelled 21.5 H INR Cancelled APTT D-Dimer (<500) ng/ml Sodium Potassium Chloride Carbon Dioxide BUN Creatinine Estimated GFR BUN/Creatinine Ratio Glucose Calcium Magnesium (1.6-2.3) mg/dL Total Bilirubin AST ALT Alkaline Phosphatase Total Creatine Kinase (55-170) U/L Troponin I NT-Pro-B Natriuret Pep Total Protein Albumin Globulin Albumin/Globulin Ratio Lipase (23-300) U/L SARS-CoV-2 (PCR) (Negative) Influenza A (RT-PCR) (NEGATIVE) Influenza B (RT-PCR) (NEGATIVE) RSV (PCR) (Negative) 07/20/25 07/20/25 07/20/25 Range/Units 15:08 15:08 15:08 WBC RBC Hgb Hct MCV MCH MCHC RDW Plt Count Neut % (Auto) Lymph % (Auto) Mcdowell % (Auto) Eos % (Auto) Baso % (Auto) Neut # (Auto) Lymph # (Auto) Mcdowell # (Auto) Eos # (Auto) Baso # (Auto) PT INR 1.9 H APTT Cancelled 39 H D-Dimer 1207 H (<500) ng/ml Sodium Cancelled 137 Potassium Cancelled Chloride Carbon Dioxide BUN Creatinine Estimated GFR BUN/Creatinine Ratio Glucose Calcium Magnesium (1.6-2.3) mg/dL Total Bilirubin AST ALT Alkaline Phosphatase Total Creatine Kinase (55-170) U/L Troponin I NT-Pro-B Natriuret Pep Total Protein Albumin Globulin Albumin/Globulin Ratio Lipase (23-300) U/L SARS-CoV-2 (PCR) (Negative) Influenza A (RT-PCR) (NEGATIVE) Influenza B (RT-PCR) (NEGATIVE) RSV (PCR) (Negative) 07/20/25 07/20/25 07/20/25 Range/Units 15:08 15:08 15:08 WBC RBC Hgb Hct MCV MCH MCHC RDW Plt Count Neut % (Auto) Lymph % (Auto) Mcdowell % (Auto) Eos % (Auto) Baso % (Auto) Neut # (Auto) Lymph # (Auto) Mcdowell # (Auto) Eos # (Auto) Baso # (Auto) PT INR APTT D-Dimer (<500) ng/ml Sodium Potassium 4.3 Chloride Cancelled 106 Carbon Dioxide Cancelled 15 L BUN Cancelled Creatinine Estimated GFR BUN/Creatinine Ratio Glucose Calcium Magnesium (1.6-2.3) mg/dL Total Bilirubin AST ALT Alkaline Phosphatase Total Creatine Kinase (55-170) U/L Troponin I NT-Pro-B Natriuret Pep Total Protein Albumin Globulin Albumin/Globulin Ratio Lipase (23-300) U/L SARS-CoV-2 (PCR) (Negative) Influenza A (RT-PCR) (NEGATIVE) Influenza B (RT-PCR) (NEGATIVE) RSV (PCR) (Negative) 07/20/25 07/20/25 07/20/25 Range/Units 15:08 15:08 15:08 WBC RBC Hgb Hct MCV MCH MCHC RDW Plt Count Neut % (Auto) Lymph % (Auto) Mcdowell % (Auto) Eos % (Auto) Baso % (Auto) Neut # (Auto) Lymph # (Auto) Mcdowell # (Auto) Eos # (Auto) Baso # (Auto) PT INR APTT D-Dimer (<500) ng/ml Sodium Potassium Chloride Carbon Dioxide BUN 24 H Creatinine Cancelled 0.90 Estimated GFR Cancelled > 60 BUN/Creatinine Ratio Cancelled Glucose Calcium Magnesium (1.6-2.3) mg/dL Total Bilirubin AST ALT Alkaline Phosphatase Total Creatine Kinase (55-170) U/L Troponin I NT-Pro-B Natriuret Pep Total Protein Albumin Globulin Albumin/Globulin Ratio Lipase (23-300) U/L SARS-CoV-2 (PCR) (Negative) Influenza A (RT-PCR) (NEGATIVE) Influenza B (RT-PCR) (NEGATIVE) RSV (PCR) (Negative) 07/20/25 07/20/25 07/20/25 Range/Units 15:08 15:08 15:08 WBC RBC Hgb Hct MCV MCH MCHC RDW Plt Count Neut % (Auto) Lymph % (Auto) Mcdowell % (Auto) Eos % (Auto) Baso % (Auto) Neut # (Auto) Lymph # (Auto) Mcdowell # (Auto) Eos # (Auto) Baso # (Auto) PT INR APTT D-Dimer (<500) ng/ml Sodium Potassium Chloride Carbon Dioxide BUN Creatinine Estimated GFR BUN/Creatinine Ratio 26.7 H Glucose Cancelled 112 H Calcium Cancelled 9.4 Magnesium 1.9 (1.6-2.3) mg/dL Total Bilirubin Cancelled AST ALT Alkaline Phosphatase Total Creatine Kinase (55-170) U/L Troponin I NT-Pro-B Natriuret Pep Total Protein Albumin Globulin Albumin/Globulin Ratio Lipase (23-300) U/L SARS-CoV-2 (PCR) (Negative) Influenza A (RT-PCR) (NEGATIVE) Influenza B (RT-PCR) (NEGATIVE) RSV (PCR) (Negative) 07/20/25 07/20/25 07/20/25 Range/Units 15:08 15:08 15:08 WBC RBC Hgb Hct MCV MCH MCHC RDW Plt Count Neut % (Auto) Lymph % (Auto) Mcdowell % (Auto) Eos % (Auto) Baso % (Auto) Neut # (Auto) Lymph # (Auto) Mcdowell # (Auto) Eos # (Auto) Baso # (Auto) PT INR APTT D-Dimer (<500) ng/ml Sodium Potassium Chloride Carbon Dioxide BUN Creatinine Estimated GFR BUN/Creatinine Ratio Glucose Calcium Magnesium (1.6-2.3) mg/dL Total Bilirubin 3.8 H AST Cancelled 70 H ALT Cancelled 56 H Alkaline Phosphatase Cancelled Total Creatine Kinase (55-170) U/L Troponin I NT-Pro-B Natriuret Pep Total Protein Albumin Globulin Albumin/Globulin Ratio Lipase (23-300) U/L SARS-CoV-2 (PCR) (Negative) Influenza A (RT-PCR) (NEGATIVE) Influenza B (RT-PCR) (NEGATIVE) RSV (PCR) (Negative) 07/20/25 07/20/25 07/20/25 Range/Units 15:08 15:08 15:08 WBC RBC Hgb Hct MCV MCH MCHC RDW Plt Count Neut % (Auto) Lymph % (Auto) Mcdowell % (Auto) Eos % (Auto) Baso % (Auto) Neut # (Auto) Lymph # (Auto) Mcdowell # (Auto) Eos # (Auto) Baso # (Auto) PT INR APTT D-Dimer (<500) ng/ml Sodium Potassium Chloride Carbon Dioxide BUN Creatinine Estimated GFR BUN/Creatinine Ratio Glucose Calcium Magnesium (1.6-2.3) mg/dL Total Bilirubin AST ALT Alkaline Phosphatase 138 H Total Creatine Kinase 26 L (55-170) U/L Troponin I Cancelled 0.027 NT-Pro-B Natriuret Pep Cancelled 27398 H Total Protein Cancelled Albumin Globulin Albumin/Globulin Ratio Lipase (23-300) U/L SARS-CoV-2 (PCR) (Negative) Influenza A (RT-PCR) (NEGATIVE) Influenza B (RT-PCR) (NEGATIVE) RSV (PCR) (Negative) 07/20/25 07/20/25 07/20/25 Range/Units 15:08 15:08 15:08 WBC RBC Hgb Hct MCV MCH MCHC RDW Plt Count Neut % (Auto) Lymph % (Auto) Mcdowell % (Auto) Eos % (Auto) Baso % (Auto) Neut # (Auto) Lymph # (Auto) Mcdowell # (Auto) Eos # (Auto) Baso # (Auto) PT INR APTT D-Dimer (<500) ng/ml Sodium Potassium Chloride Carbon Dioxide BUN Creatinine Estimated GFR BUN/Creatinine Ratio Glucose Calcium Magnesium (1.6-2.3) mg/dL Total Bilirubin AST ALT Alkaline Phosphatase Total Creatine Kinase (55-170) U/L Troponin I NT-Pro-B Natriuret Pep Total Protein 8.1 Albumin Cancelled 4.7 Globulin Cancelled 3.4 Albumin/Globulin Ratio Cancelled Lipase (23-300) U/L SARS-CoV-2 (PCR) (Negative) Influenza A (RT-PCR) (NEGATIVE) Influenza B (RT-PCR) (NEGATIVE) RSV (PCR) (Negative) 07/20/25 07/20/25 Range/Units 15:08 15:30 WBC RBC Hgb Hct MCV MCH MCHC RDW Plt Count Neut % (Auto) Lymph % (Auto) Mcdowell % (Auto) Eos % (Auto) Baso % (Auto) Neut # (Auto) Lymph # (Auto) Mcdowell # (Auto) Eos # (Auto) Baso # (Auto) PT INR APTT D-Dimer (<500) ng/ml Sodium Potassium Chloride Carbon Dioxide BUN Creatinine Estimated GFR BUN/Creatinine Ratio Glucose Calcium Magnesium (1.6-2.3) mg/dL Total Bilirubin AST ALT Alkaline Phosphatase Total Creatine Kinase (55-170) U/L Troponin I NT-Pro-B Natriuret Pep Total Protein Albumin Globulin Albumin/Globulin Ratio 1.4 Lipase 35 (23-300) U/L SARS-CoV-2 (PCR) Negative (Negative) Influenza A (RT-PCR) Flu a negative (NEGATIVE) Influenza B (RT-PCR) Flu b negative (NEGATIVE) RSV (PCR) Negative (Negative) [facility] Narrative Medical decision making narrative: The patient had 12 lead EKG reveals sinus rhythm 98 beats per minute left axis deviation LVH nonspecific STT wave changes patient had chest x-ray remarkable only for borderline cardiomegaly patient's CTA of the chest negative pulmonary embolism however there is moderate cardiomegaly there is mild interstitial pulmonary edema there was incidental hamartoma or granuloma in the left lung base and there are 2 peripheral areas of wedge-shaped consolidative opacity extending to the pleura in the right lower lobe consider pneumonia consider pulmonary infarct no associated pulmonary emboli and a minimal right pleural effusion patient had a CBC which is unremarkable chemistry remarkable for a bicarb of 15 when anion gap of 16 D-dimer is 1207 INR 1.9 [place] [address] initial troponin was 0 0.027. Patient was COVID negative flu negative. In the emergency department patient was given a nebulizer treatment patient was also given IV furosemide blood crisis were drawn and the patient was given IV Rocephin and Zithromax as well as a DuoNeb and IV dexamethasone. At this point I think the patient needs to be admitted to the hospital for further antibiotic therapy and treatment I will contact the hospitalist to admit the patient differential diagnosis pulmonary embolism pneumonia pulmonary edema Discharge Plan Departure Patient Disposition: Admitted as Observation Clinical Impression: Community acquired pneumonia, Pulmonary edema
[2025-07-20 15:34] LABS: Add Manual Diff / Slide Review NO; Hematocrit 38.2 % (41-53); Hemoglobin 12.5 g/dL (13.5-17.5); Lymphocytes Absolute Auto 2100 /uL (1100-4500); Mean Corpuscular HGB Conc 32.8 % (30-36); Mean Corpuscular Hemoglobin 27.5 PG (26-34); Mean Corpuscular Volume 83.8 fL (80-100); Platelet Count 231 X10^3/uL (150-400)
[2025-07-20 15:37] LABS: INR 1.9 (0.9-1.3); Prothrombin Time 21.5 SECONDS (9.4-12.5)
[2025-07-20 15:39] LABS: PTT Partial Thromboplastin Tim 39 SECONDS (25.1-36.5)
[2025-07-20 15:41] LABS: Alanine Aminotransferase 56 IU/L (<50); Albumin 4.7 g/dL (3.5-5.0); Albumin Globulin Ratio 1.4 (1.0-2.8); Alkaline Phosphatase 138 U/L (38-126); Blood Urea Nitrogen 24 mg/dL (9-20); Calcium 9.4 mg/dL (8.4-10.2); Carbon Dioxide 15 mmol/L (22-32); Chloride 106 mmol/L (98-107); Estimated Glomerular Filt Rate > 60 mL/min (>60); Globulin 3.4 g/dL (1.7-4.1); Glucose 112 mg/dL (70-99); HEMOLYSIS 17 (0-50); Potassium 4.3 mmol/L (3.4-5.1); Sodium 137 mmol/L (137-145); Total Protein 8.1 g/dL (6.3-8.2)
[2025-07-20 15:53] LABS: Troponin I 0.027 ng/mL (0.01-0.034)
[2025-07-20 16:06] LABS: NT-proBNP (BNP-Adult 18+) 59800 pg/mL (<125)
[2025-07-20 16:17] LABS: Creatine Kinase 26 U/L (55-170); Lipase 35 U/L (23-300); Magnesium 1.9 mg/dL (1.6-2.3)
[2025-07-20 16:19] LABS: Influenza A - CEPHEID Flu A NEGATIVE (NEGATIVE); Influenza B - CEPHEID Flu B NEGATIVE (NEGATIVE)
[2025-07-20 16:22] LABS: COVID-19 CEPHEID 4-PLEX PCR Negative (Negative)
--- NOTE | 2025-07-20 16:40 | DI.CT.S_ITS ---
PROCEDURE: CT ANGIO CHEST PE PROTOCOL INDICATIONS: sob and elevated ddimer TECHNIQUE: After the administration of intravenous contrast, 2 mm thick sections acquired from the pulmonary apices to the posterior costophrenic angles. 3-dimensional maximum intensity projection (MIP) coronal and sagittal reformats were then acquired through the thorax. For radiation dose reduction, the following was used: automated exposure control, adjustment of mA and/or kV according to patient size. COMPARISON: [facility], CR, XR CHEST 1V, 07/20/2025, 14:57. FINDINGS: Image quality: Diagnostic. Pulmonary arteries: Pulmonary arteries are normal in size, and demonstrate no intraluminal filling defects to suggest central pulmonary embolism. Lower Neck: No enlarged lymph nodes. Thyroid: No thyroid nodules which require sonographic follow up, per consensus guidelines. Axillae: No enlarged lymph nodes. Chest Wall: Unremarkable. Bones: Unremarkable. Lungs and Pleura: On image 256 of series 5 there is a hamartoma or centrally calcified granuloma in the left lower lobe measuring 1.3 cm. There are 2 wedge-shaped peripheral opacities in the right lower lobe extending to the pleura on image 252 of series 5 measuring 1.6 x 2.1 cm and 2.7 x 2.3 cm respectively. Consider small focal pneumonias. Consider small areas of pulmonary infarct. Minimal right pleural effusion. Heart: Cardiomegaly with left ventricular and biatrial enlargement.. No pericardial effusion. Thoracic Vessels: No aortic aneurysm. Mediastinum and Kaity: No enlarged lymph nodes. Esophagus: No wall thickening. No hiatal hernia. Upper Abdomen: Visualized upper abdomen solid organs and bowel loops appear normal. IMPRESSION: 1. Moderate cardiomegaly. 2. Very mild interstitial pulmonary edema. 3. Incidental hamartoma or granuloma in the left lung base. 4. There are 2 peripheral areas of wedge-shaped consolidative opacity extending to the pleura in the right lower lobe. Consider small focal areas of pneumonia. Consider small focal areas of pulmonary infarct. There are no associated pulmonary emboli identified. 5. Minimal right pleural effusion. Dictated by: Kendall Funez M.D. on 07/20/2025 at 17:27 Approved by: Kendall Funez M.D. on 07/20/2025 at 17:33
--- NOTE | 2025-07-20 17:35 | PC.NURSE ---
Patient anxious: Md aware. Med ordered. Pt given meds. Encouraged to take some deep breathes and focus on breathing.
--- NOTE | 2025-07-20 18:22 | P.HP_ITS ---
History of Present Illness History of Present Illness Date Patient Seen: 07/20/25 Time Patient Seen: 18:22 Chief complaint: CHF, SOB, Fatigue, Narrative: This is a 50-year-old male with a history of Cocaine related cardiomyopathy and previous pulmonary embolism who presents with approximately 1 week of progressive dyspnea and fatigue. Imaging reveals bilateral pulmonary edema with a wedge shaped right lower lobe lesion that is either a pulmonary infarct or pneumonia. He has had no fevers, chills, sweats or coughing. His BNP is 59,800. He was just hospitalized at [facility] for 5 days last week for ?the same thing? but did not get any of his medicines from the [place] pharmacy so far. He expects them to arrive in the mail tomorrow. He does not know the names of any of his medicines. So far we have not obtained a med list or discharge summary from his last hospital stay a week ago. He was diagnosed with cardiomyopathy and ejection fraction of 17% while living in [facility] and using cocaine last year. He has had several hospitalizations since then and has relapsed at least once. His last ejection fraction was apparently 24% but he is unable to recall when his last echo was. He does not have a local verifying specialist or PCP yet. He is 100% service connected with the [place] for complex PTSD. Assessment and plan: Cocaine related chronic cardiomyopathy with CHF. -obtain recent med list and discharge summary from [facility]. -in the meantime we will begin on carvedilol, losartan and Eliquis. -echocardiogram ordered. Telemetry monitoring. -no definitive clinical signs of pneumonia or other infection. White blood count 8.3. History of pulmonary embolism -the timeframe and recent treatments for this are unclear. -begin Eliquis and obtain recent med list from discharge Complex PTSD. -the patient has a challenging personality with evident tangentiality and easy irritability. -he appears to be dependent on his mother but they seem to have a complex relationship. History of cocaine use -check urine drug screen. Jaundice -total bilirubin 3.8 with AST 70 and ALT 56. INR 1.9. -patient states he is not aware of any jaundice or liver disease. -review discharge summary when available and consider imaging. His backup decision maker is his mother. Eliquis for DVT prevention. [facility] Medical History (Updated 07/20/25 @ 18:50 by Juan Bowen MD) Cocaine abuse in remission PTSD (post-traumatic stress disorder) Cardiomyopathy Surgical History (Updated 07/20/25 @ 18:51 by Juan Bowen MD) History of gastric surgery H/O hand surgery H/O lithotripsy Family History (Updated 07/20/25 @ 18:52 by Juan Bowen MD) Mother Autoimmune disease Father Alzheimer dementia Social History (Updated 07/20/25 @ 18:52 by Juan Bowen MD) substance use type: former substance user and crack/cocaine Comment: He lives with his mother in [facility] Medications and Allergies Home Medications ?Medication ?Instructions ?Recorded ?Confirmed ?Type cyclobenzaprine 10 mg tablet 10 mg PO TID PRN muscle s pasm #14 01/30/20 Rx tabs ketorolac 10 mg tablet 10 mg PO Q6H PRN pain #14 ta bs 01/30/20 Rx lidocaine 5 % topical patch 1 patch topical DAILY #15 ea 01/30/20 Rx (Lidoderm) oxycodone 5 mg tablet 10 mg (2 x 5 mg) PO QID PRN pain 09/26/21 Rx #20 tabs Allergies Allergy/AdvReac Type Severity Reaction Status Date / Time Sulfa (Sulfonamide Allergy Unknown Verified 07/20/25 14:45 Antibiotics) Review of Systems Review of Systems Narrative: Positive for fatigue and dyspnea. Negative for fevers, chills, sweats, chest pain, coughing, abdominal pain, nausea, vomiting, dysuria, bleeding, rash. Exam Vital Signs (past 8 hours): - 07/20/25 14:45 07/20/25 15:06 07/20/25 15:07 Temperature 97.6 F Pulse Rate 41 L 74 Respiratory Rate 22 24 21 Blood Pressure 127/87 Pulse Oximetry 100 100 100 Oxygen Delivery Method Room Air 07/20/25 15:07 07/20/25 15:30 07/20/25 15:30 Temperature Pulse Rate 94 H Respiratory Rate Blood Pressure 121/91 H 126/96 H Pulse Oximetry 99 Oxygen Delivery Method 07/20/25 16:00 07/20/25 16:30 07/20/25 16:30 Temperature Pulse Rate 101 H 100 H Respiratory Rate 24 21 Blood Pressure 139/106 H Pulse Oximetry 99 98 Oxygen Delivery Method 07/20/25 17:00 07/20/25 17:21 07/20/25 17:21 Temperature Pulse Rate 101 H 97 H Respiratory Rate Blood Pressure 144/99 H Pulse Oximetry 99 99 Oxygen Delivery Method 07/20/25 17:30 07/20/25 17:33 07/20/25 17:33 Temperature Pulse Rate 95 H 95 H Respiratory Rate 21 Blood Pressure 138/93 H Pulse Oximetry 98 98 Oxygen Delivery Method Oxygen Delivery Method Room Air Narrative Exam Narrative: Alert and oriented x3. Very tangential. Very irritable. Pupils are equally round and reactive to light and accommodation. Sclerae are icteric. Extraocular muscles are intact. No lymph nodes are felt head, neck, supraclavicular area. There is no thyromegaly. JVD is less than 6 cm. No carotid bruits heard. Heart is regular rate and rhythm without murmur. Lungs are clear to auscultation bilaterally. Abdomen is soft, bowel sounds positive, nontender, no organomegaly. Extremities have no ankle edema. Skin has no rash or definite jaundice. Motor function is 5/5 throughout. There is no tremor. Cranial nerves 2-12 test intact. Reflexes are symmetric. Objective Labs 07/20/25 15:08 07/20/25 15:08 Labs: Laboratory Results - last 24 hr 07/20/25 07/20/25 07/20/25 15:08 15:08 15:08 WBC Cancelled 8.3 RBC Cancelled 4.56 Hgb Cancelled Hct MCV MCH MCHC RDW Plt Count Neut % (Auto) Lymph % (Auto) [place] % (Auto) Eos % (Auto) Baso % (Auto) Neut # (Auto) Lymph # (Auto) [place] # (Auto) Eos # (Auto) Baso # (Auto) PT INR APTT D-Dimer Sodium Potassium Chloride Carbon Dioxide BUN Creatinine Estimated GFR BUN/Creatinine Ratio Glucose Calcium Magnesium Total Bilirubin AST ALT Alkaline Phosphatase Total Creatine Kinase Troponin I NT-Pro-B Natriuret Pep Total Protein Albumin Globulin Albumin/Globulin Ratio Lipase SARS-CoV-2 (PCR) Influenza A (RT-PCR) Influenza B (RT-PCR) RSV (PCR) 07/20/25 07/20/25 07/20/25 15:08 15:08 15:08 WBC RBC Hgb 12.5 L Hct Cancelled 38.2 L MCV Cancelled 83.8 MCH Cancelled MCHC RDW Plt Count Neut % (Auto) Lymph % (Auto) [place] % (Auto) Eos % (Auto) Baso % (Auto) Neut # (Auto) Lymph # (Auto) [place] # (Auto) Eos # (Auto) Baso # (Auto) PT INR APTT D-Dimer Sodium Potassium Chloride Carbon Dioxide BUN Creatinine Estimated GFR BUN/Creatinine Ratio Glucose Calcium Magnesium Total Bilirubin AST ALT Alkaline Phosphatase Total Creatine Kinase Troponin I NT-Pro-B Natriuret Pep Total Protein Albumin Globulin Albumin/Globulin Ratio Lipase SARS-CoV-2 (PCR) Influenza A (RT-PCR) Influenza B (RT-PCR) RSV (PCR) 07/20/25 07/20/25 07/20/25 15:08 15:08 15:08 WBC RBC Hgb Hct MCV MCH 27.5 MCHC Cancelled 32.8 RDW Cancelled 21.1 H Plt Count Cancelled Neut % (Auto) Lymph % (Auto) [place] % (Auto) Eos % (Auto) Baso % (Auto) Neut # (Auto) Lymph # (Auto) [place] # (Auto) Eos # (Auto) Baso # (Auto) PT INR APTT D-Dimer Sodium Potassium Chloride Carbon Dioxide BUN Creatinine Estimated GFR BUN/Creatinine Ratio Glucose Calcium Magnesium Total Bilirubin AST ALT Alkaline Phosphatase Total Creatine Kinase Troponin I NT-Pro-B Natriuret Pep Total Protein Albumin Globulin Albumin/Globulin Ratio Lipase SARS-CoV-2 (PCR) Influenza A (RT-PCR) Influenza B (RT-PCR) RSV (PCR) 07/20/25 07/20/25 07/20/25 15:08 15:08 15:08 WBC RBC Hgb Hct MCV MCH MCHC RDW Plt Count 231 Neut % (Auto) Cancelled 63.1 Lymph % (Auto) Cancelled 25.8 [place] % (Auto) Cancelled Eos % (Auto) Baso % (Auto) Neut # (Auto) Lymph # (Auto) [place] # (Auto) Eos # (Auto) Baso # (Auto) PT INR APTT D-Dimer Sodium Potassium Chloride Carbon Dioxide BUN Creatinine Estimated GFR BUN/Creatinine Ratio Glucose Calcium Magnesium Total Bilirubin AST ALT Alkaline Phosphatase Total Creatine Kinase Troponin I NT-Pro-B Natriuret Pep Total Protein Albumin Globulin Albumin/Globulin Ratio Lipase SARS-CoV-2 (PCR) Influenza A (RT-PCR) Influenza B (RT-PCR) RSV (PCR) 12/05/0607/20/25 07/20/25 15:08 15:08 15:08 WBC RBC Hgb Hct MCV MCH MCHC RDW Plt Count Neut % (Auto) Lymph % (Auto) [place] % (Auto) 9.2 Eos % (Auto) Cancelled 1.5 L Baso % (Auto) Cancelled 0.4 Neut # (Auto) Cancelled Lymph # (Auto) [place] # (Auto) Eos # (Auto) Baso # (Auto) PT INR APTT D-Dimer Sodium Potassium Chloride Carbon Dioxide BUN Creatinine Estimated GFR BUN/Creatinine Ratio Glucose Calcium Magnesium Total Bilirubin AST ALT Alkaline Phosphatase Total Creatine Kinase Troponin I NT-Pro-B Natriuret Pep Total Protein Albumin Globulin Albumin/Globulin Ratio Lipase SARS-CoV-2 (PCR) Influenza A (RT-PCR) Influenza B (RT-PCR) RSV (PCR) 07/20/25 07/20/25 07/20/25 15:08 15:08 15:08 WBC RBC Hgb Hct MCV MCH MCHC RDW Plt Count Neut % (Auto) Lymph % (Auto) [place] % (Auto) Eos % (Auto) Baso % (Auto) Neut # (Auto) 5200 Lymph # (Auto) Cancelled 2100 [place] # (Auto) Cancelled 800 Eos # (Auto) Cancelled Baso # (Auto) PT INR APTT D-Dimer Sodium Potassium Chloride Carbon Dioxide BUN Creatinine Estimated GFR BUN/Creatinine Ratio Glucose Calcium Magnesium Total Bilirubin AST ALT Alkaline Phosphatase Total Creatine Kinase Troponin I NT-Pro-B Natriuret Pep Total Protein Albumin Globulin Albumin/Globulin Ratio Lipase SARS-CoV-2 (PCR) Influenza A (RT-PCR) Influenza B (RT-PCR) RSV (PCR) 07/20/25 07/20/25 07/20/25 15:08 15:08 15:08 WBC RBC Hgb Hct MCV MCH MCHC RDW Plt Count Neut % (Auto) Lymph % (Auto) [place] % (Auto) Eos % (Auto) Baso % (Auto) Neut # (Auto) Lymph # (Auto) [place] # (Auto) Eos # (Auto) 100 Baso # (Auto) Cancelled 0 PT Cancelled 21.5 H INR Cancelled APTT D-Dimer Sodium Potassium Chloride Carbon Dioxide BUN Creatinine Estimated GFR BUN/Creatinine Ratio Glucose Calcium Magnesium Total Bilirubin AST ALT Alkaline Phosphatase Total Creatine Kinase Troponin I NT-Pro-B Natriuret Pep Total Protein Albumin Globulin Albumin/Globulin Ratio Lipase SARS-CoV-2 (PCR) Influenza A (RT-PCR) Influenza B (RT-PCR) RSV (PCR) 07/20/25 07/20/25 07/20/25 15:08 15:08 15:08 WBC RBC Hgb Hct MCV MCH MCHC RDW Plt Count Neut % (Auto) Lymph % (Auto) [place] % (Auto) Eos % (Auto) Baso % (Auto) Neut # (Auto) Lymph # (Auto) [place] # (Auto) Eos # (Auto) Baso # (Auto) PT INR 1.9 H APTT Cancelled 39 H D-Dimer 1207 H Sodium Cancelled 137 Potassium Cancelled Chloride Carbon Dioxide BUN Creatinine Estimated GFR BUN/Creatinine Ratio Glucose Calcium Magnesium Total Bilirubin AST ALT Alkaline Phosphatase Total Creatine Kinase Troponin I NT-Pro-B Natriuret Pep Total Protein Albumin Globulin Albumin/Globulin Ratio Lipase SARS-CoV-2 (PCR) Influenza A (RT-PCR) Influenza B (RT-PCR) RSV (PCR) 07/20/25 07/20/25 07/20/25 15:08 15:08 15:08 WBC RBC Hgb Hct MCV MCH MCHC RDW Plt Count Neut % (Auto) Lymph % (Auto) [place] % (Auto) Eos % (Auto) Baso % (Auto) Neut # (Auto) Lymph # (Auto) [place] # (Auto) Eos # (Auto) Baso # (Auto) PT INR APTT D-Dimer Sodium Potassium 4.3 Chloride Cancelled 106 Carbon Dioxide Cancelled 15 L BUN Cancelled Creatinine Estimated GFR BUN/Creatinine Ratio Glucose Calcium Magnesium Total Bilirubin AST ALT Alkaline Phosphatase Total Creatine Kinase Troponin I NT-Pro-B Natriuret Pep Total Protein Albumin Globulin Albumin/Globulin Ratio Lipase SARS-CoV-2 (PCR) Influenza A (RT-PCR) Influenza B (RT-PCR) RSV (PCR) 07/20/25 07/20/25 07/20/25 15:08 15:08 15:08 WBC RBC Hgb Hct MCV MCH MCHC RDW Plt Count Neut % (Auto) Lymph % (Auto) [place] % (Auto) Eos % (Auto) Baso % (Auto) Neut # (Auto) Lymph # (Auto) [place] # (Auto) Eos # (Auto) Baso # (Auto) PT INR APTT D-Dimer Sodium Potassium Chloride Carbon Dioxide BUN 24 H Creatinine Cancelled 0.90 Estimated GFR Cancelled > 60 BUN/Creatinine Ratio Cancelled Glucose Calcium Magnesium Total Bilirubin AST ALT Alkaline Phosphatase Total Creatine Kinase Troponin I NT-Pro-B Natriuret Pep Total Protein Albumin Globulin Albumin/Globulin Ratio Lipase SARS-CoV-2 (PCR) Influenza A (RT-PCR) Influenza B (RT-PCR) RSV (PCR) 07/20/25 07/20/25 07/20/25 15:08 15:08 15:08 WBC RBC Hgb Hct MCV MCH MCHC RDW Plt Count Neut % (Auto) Lymph % (Auto) [place] % (Auto) Eos % (Auto) Baso % (Auto) Neut # (Auto) Lymph # (Auto) [place] # (Auto) Eos # (Auto) Baso # (Auto) PT INR APTT D-Dimer Sodium Potassium Chloride Carbon Dioxide BUN Creatinine Estimated GFR BUN/Creatinine Ratio 26.7 H Glucose Cancelled 112 H Calcium Cancelled 9.4 Magnesium 1.9 Total Bilirubin Cancelled AST ALT Alkaline Phosphatase Total Creatine Kinase Troponin I NT-Pro-B Natriuret Pep Total Protein Albumin Globulin Albumin/Globulin Ratio Lipase SARS-CoV-2 (PCR) Influenza A (RT-PCR) Influenza B (RT-PCR) RSV (PCR) 07/20/25 07/20/25 07/20/25 15:08 15:08 15:08 WBC RBC Hgb Hct MCV MCH MCHC RDW Plt Count Neut % (Auto) Lymph % (Auto) [place] % (Auto) Eos % (Auto) Baso % (Auto) Neut # (Auto) Lymph # (Auto) [place] # (Auto) Eos # (Auto) Baso # (Auto) PT INR APTT D-Dimer Sodium Potassium Chloride Carbon Dioxide BUN Creatinine Estimated GFR BUN/Creatinine Ratio Glucose Calcium Magnesium Total Bilirubin 3.8 H AST Cancelled 70 H ALT Cancelled 56 H Alkaline Phosphatase Cancelled Total Creatine Kinase Troponin I NT-Pro-B Natriuret Pep Total Protein Albumin Globulin Albumin/Globulin Ratio Lipase SARS-CoV-2 (PCR) Influenza A (RT-PCR) Influenza B (RT-PCR) RSV (PCR) 07/20/25 07/20/25 07/20/25 15:08 15:08 15:08 WBC RBC Hgb Hct MCV MCH MCHC RDW Plt Count Neut % (Auto) Lymph % (Auto) [place] % (Auto) Eos % (Auto) Baso % (Auto) Neut # (Auto) Lymph # (Auto) [place] # (Auto) Eos # (Auto) Baso # (Auto) PT INR APTT D-Dimer Sodium Potassium Chloride Carbon Dioxide BUN Creatinine Estimated GFR BUN/Creatinine Ratio Glucose Calcium Magnesium Total Bilirubin AST ALT Alkaline Phosphatase 138 H Total Creatine Kinase 26 L Troponin I Cancelled 0.027 NT-Pro-B Natriuret Pep Cancelled 32200 H Total Protein Cancelled Albumin Globulin Albumin/Globulin Ratio Lipase SARS-CoV-2 (PCR) Influenza A (RT-PCR) Influenza B (RT-PCR) RSV (PCR) 07/20/25 07/20/25 07/20/25 15:08 15:08 15:08 WBC RBC Hgb Hct MCV MCH MCHC RDW Plt Count Neut % (Auto) Lymph % (Auto) [place] % (Auto) Eos % (Auto) Baso % (Auto) Neut # (Auto) Lymph # (Auto) [place] # (Auto) Eos # (Auto) Baso # (Auto) PT INR APTT D-Dimer Sodium Potassium Chloride Carbon Dioxide BUN Creatinine Estimated GFR BUN/Creatinine Ratio Glucose Calcium Magnesium Total Bilirubin AST ALT Alkaline Phosphatase Total Creatine Kinase Troponin I NT-Pro-B Natriuret Pep Total Protein 8.1 Albumin Cancelled 4.7 Globulin Cancelled 3.4 Albumin/Globulin Ratio Cancelled Lipase SARS-CoV-2 (PCR) Influenza A (RT-PCR) Influenza B (RT-PCR) RSV (PCR) 07/20/25 07/20/25 15:08 15:30 WBC RBC Hgb Hct MCV MCH MCHC RDW Plt Count Neut % (Auto) Lymph % (Auto) [place] % (Auto) Eos % (Auto) Baso % (Auto) Neut # (Auto) Lymph # (Auto) [place] # (Auto) Eos # (Auto) Baso # (Auto) PT INR APTT D-Dimer Sodium Potassium Chloride Carbon Dioxide BUN Creatinine Estimated GFR BUN/Creatinine Ratio Glucose Calcium Magnesium Total Bilirubin AST ALT Alkaline Phosphatase Total Creatine Kinase Troponin I NT-Pro-B Natriuret Pep Total Protein Albumin Globulin Albumin/Globulin Ratio 1.4 Lipase 35 SARS-CoV-2 (PCR) Negative Influenza A (RT-PCR) Flu a negative Influenza B (RT-PCR) Flu b negative RSV (PCR) Negative Assessment & Plan Time-Based Coding :: [TOTAL MINUTES] spent with patient and on the chart (including review of chart, obtaining history, exam, reviewing outside data, placing orders, documenting exam and treatment plan, and counseling patient) on [DATE].
[2025-07-20] MEDS: FUROSEMIDE 60 MG in SODIUM CHLORIDE 0.9% 50 ML 112 MG IV (18:28)
[2025-07-20 18:57] LABS: Lactate (Lactic Acid) 2.2 mmol/L (0.7-2.1)
[2025-07-20] MEDS: AZITHROMYCIN 500 MG in DEXTROSE 5% IN WATER 250 ML 250 MG IV (19:07)
[2025-07-20] MEDS: ASPIRIN 81 MG CHEW TAB 324 MG PO (19:09)
[2025-07-20] MEDS: ALBUTEROL/IPRATROPIUM 3 ML AMPUL INH (19:19)
--- NOTE | 2025-07-20 19:29 | PC.NURSE ---
Report received from Lavelle Huizar RN
[2025-07-20 20:10] LABS: Reflexed Lactate in 2 Hours Y
[2025-07-20 20:41] LABS: Lactate 2HR (Lactic Acid Rflx) 3.5 mmol/L (0.7-2.1)
[2025-07-20] MEDS: LOSARTAN 50 MG TABLET PO (21:52)
[2025-07-20] MEDS: APIXABAN 5 MG TABLET PO (21:53)
--- NOTE | 2025-07-21 01:45 | PC.NURSE ---
retail shift supervisor, upon admission to acute care floor, patient has been very anxiety, and patient stats he has been having many panic attacks; M.D. aware and ordered one time does to help with anxiety. Patient is on cardiac telemetry, and is requesting not to be disturbed during sleep for VS, RN informed patient on the importance of doing periodic VS to assess patients health, Patient verbalized understanding and still did not want to be disturbed, RN informed MD on patients request, and MD gave verbal permission to not disturb patient while asleep and telemetry is still active recording. residential support specialistSELENE dai. Sign on door placed.
[2025-07-21 07:32] LABS: Add Manual Diff / Slide Review NO; Hematocrit 32.5 % (41-53); Hemoglobin 10.9 g/dL (13.5-17.5); Lymphocytes Absolute Auto 700 /uL (1100-4500); Mean Corpuscular HGB Conc 33.5 % (30-36); Mean Corpuscular Hemoglobin 27.7 PG (26-34); Mean Corpuscular Volume 82.8 fL (80-100); Platelet Count 181 X10^3/uL (150-400)
[2025-07-21 07:39] LABS: Blood Urea Nitrogen 22 mg/dL (9-20); Calcium 8.8 mg/dL (8.4-10.2); Carbon Dioxide 18 mmol/L (22-32); Chloride 107 mmol/L (98-107); Estimated Glomerular Filt Rate > 60 mL/min (>60); Glucose 197 mg/dL (70-99); HEMOLYSIS < 15 (0-50); Potassium 4.1 mmol/L (3.4-5.1); Sodium 137 mmol/L (137-145)
[2025-07-21 07:51] LABS: Troponin I 0.016 ng/mL (0.01-0.034)
[2025-07-21 08:00] VITALS: BP 113/78; PULSE 72; RESP 22; TEMP 35.9; O2SAT 96
[2025-07-21 08:03] LABS: NT-proBNP (BNP-Adult 18+) 42900 pg/mL (<125)
--- NOTE | 2025-07-21 10:10 | P.PN_ITS ---
Subjective Subjective Interval history: This is a 50-year-old male with a history of Cocaine related cardiomyopathy and previous pulmonary embolism who presents with approximately 1 week of progressive dyspnea and fatigue. Imaging reveals bilateral pulmonary edema with a wedge shaped right lower lobe lesion that is either a pulmonary infarct or pneumonia. He has had no fevers, chills, sweats or coughing. His BNP is 59,800. He was just hospitalized at [facility] for 5 days last week for ?the same thing? but did not get any of his medicines from the [place] pharmacy so far. He expects them to arrive in the mail tomorrow. He does not know the names of any of his medicines. So far we have not obtained a med list or discharge summary from his last hospital stay a week ago. He was diagnosed with cardiomyopathy and ejection fraction of 17% while living in [facility] and using cocaine last year. He has had several hospitalizations since then and has relapsed at least once. His last ejection fraction was apparently 24% but he is unable to recall when his last echo was. He does not have a local small business representative or PCP yet. He is 100% service connected with the [place] for complex PTSD. S: Breathing is improving, does not feel ready to go home. No chest pain. 0: T 96.7?, BP 113/78, pulse 72, respiration 22, SaO2 is 96% room air. NAD, alert and oriented. Fluent speech. Lungs are clear, normal rate and effort. Heart is regular, no murmur gallop or rub. Abdomen is soft, non distended. Extremities with 1+ edema. Assessment and plan: 1. Cocaine related chronic cardiomyopathy with CHF. Improved. -obtain recent med list and discharge summary from [facility]. -echocardiogram ordered. Telemetry monitoring. -no definitive clinical signs of pneumonia or other infection. White blood count 8.3. 2. History of pulmonary embolism -the timeframe and recent treatments for this are unclear. -begin Eliquis and obtain recent med list from discharge 3. Complex PTSD. -the patient has a challenging personality with evident tangentiality and easy irritability. -he appears to be dependent on his mother but they seem to have a complex relationship. 4. History of cocaine use -check urine drug screen. 5. Jaundice -total bilirubin 3.8 with AST 70 and ALT 56. INR 1.9. -patient states he is not aware of any jaundice or liver disease. -review discharge summary when available and consider imaging. PLAN: -continue diuresis -continue chronic medications. His backup decision maker is his mother. Candice for DVT prevention. Exam Vital Signs (past 8 hours): - 07/21/25 08:00 Temperature 96.7 F L Pulse Rate 72 Respiratory Rate 22 Blood Pressure 113/78 Pulse Oximetry 96 Oxygen Flow Rate 0 Oxygen Delivery Method Room Air Oxygen Flow Rate 0 Objective Labs 07/21/25 07:15 07/21/25 07:15 Labs: Laboratory Results - last 24 hr 07/20/25 07/20/25 07/20/25 15:08 15:08 15:08 WBC Cancelled 8.3 RBC Cancelled 4.56 Hgb Cancelled Hct MCV MCH MCHC RDW Plt Count Neut % (Auto) Lymph % (Auto) [place] % (Auto) Eos % (Auto) Baso % (Auto) Neut # (Auto) Lymph # (Auto) [place] # (Auto) Eos # (Auto) Baso # (Auto) PT INR APTT D-Dimer Sodium Potassium Chloride Carbon Dioxide BUN Creatinine Estimated GFR BUN/Creatinine Ratio Glucose Lactate Calcium Magnesium Total Bilirubin AST ALT Alkaline Phosphatase Total Creatine Kinase Troponin I NT-Pro-B Natriuret Pep Total Protein Albumin Globulin Albumin/Globulin Ratio Lipase SARS-CoV-2 (PCR) Influenza A (RT-PCR) Influenza B (RT-PCR) RSV (PCR) 07/20/25 07/20/25 07/20/25 15:08 15:08 15:08 WBC RBC Hgb 12.5 L Hct Cancelled 38.2 L MCV Cancelled 83.8 MCH Cancelled MCHC RDW Plt Count Neut % (Auto) Lymph % (Auto) [place] % (Auto) Eos % (Auto) Baso % (Auto) Neut # (Auto) Lymph # (Auto) [place] # (Auto) Eos # (Auto) Baso # (Auto) PT INR APTT D-Dimer Sodium Potassium Chloride Carbon Dioxide BUN Creatinine Estimated GFR BUN/Creatinine Ratio Glucose Lactate Calcium Magnesium Total Bilirubin AST ALT Alkaline Phosphatase Total Creatine Kinase Troponin I NT-Pro-B Natriuret Pep Total Protein Albumin Globulin Albumin/Globulin Ratio Lipase SARS-CoV-2 (PCR) Influenza A (RT-PCR) Influenza B (RT-PCR) RSV (PCR) 07/20/25 07/20/25 07/20/25 15:08 15:08 15:08 WBC RBC Hgb Hct MCV MCH 27.5 MCHC Cancelled 32.8 RDW Cancelled 21.1 H Plt Count Cancelled Neut % (Auto) Lymph % (Auto) [place] % (Auto) Eos % (Auto) Baso % (Auto) Neut # (Auto) Lymph # (Auto) [place] # (Auto) Eos # (Auto) Baso # (Auto) PT INR APTT D-Dimer Sodium Potassium Chloride Carbon Dioxide BUN Creatinine Estimated GFR BUN/Creatinine Ratio Glucose Lactate Calcium Magnesium Total Bilirubin AST ALT Alkaline Phosphatase Total Creatine Kinase Troponin I NT-Pro-B Natriuret Pep Total Protein Albumin Globulin Albumin/Globulin Ratio Lipase SARS-CoV-2 (PCR) Influenza A (RT-PCR) Influenza B (RT-PCR) RSV (PCR) 07/20/25 07/20/25 07/20/25 15:08 15:08 15:08 WBC RBC Hgb Hct MCV MCH MCHC RDW Plt Count 231 Neut % (Auto) Cancelled 63.1 Lymph % (Auto) Cancelled 25.8 [place] % (Auto) Cancelled Eos % (Auto) Baso % (Auto) Neut # (Auto) Lymph # (Auto) [place] # (Auto) Eos # (Auto) Baso # (Auto) PT INR APTT D-Dimer Sodium Potassium Chloride Carbon Dioxide BUN Creatinine Estimated GFR BUN/Creatinine Ratio Glucose Lactate Calcium Magnesium Total Bilirubin AST ALT Alkaline Phosphatase Total Creatine Kinase Troponin I NT-Pro-B Natriuret Pep Total Protein Albumin Globulin Albumin/Globulin Ratio Lipase SARS-CoV-2 (PCR) Influenza A (RT-PCR) Influenza B (RT-PCR) RSV (PCR) 07/20/25 07/20/25 07/20/25 15:08 15:08 15:08 WBC RBC Hgb Hct MCV MCH MCHC RDW Plt Count Neut % (Auto) Lymph % (Auto) [place] % (Auto) 9.2 Eos % (Auto) Cancelled 1.5 L Baso % (Auto) Cancelled 0.4 Neut # (Auto) Cancelled Lymph # (Auto) [place] # (Auto) Eos # (Auto) Baso # (Auto) PT INR APTT D-Dimer Sodium Potassium Chloride Carbon Dioxide BUN Creatinine Estimated GFR BUN/Creatinine Ratio Glucose Lactate Calcium Magnesium Total Bilirubin AST ALT Alkaline Phosphatase Total Creatine Kinase Troponin I NT-Pro-B Natriuret Pep Total Protein Albumin Globulin Albumin/Globulin Ratio Lipase SARS-CoV-2 (PCR) Influenza A (RT-PCR) Influenza B (RT-PCR) RSV (PCR) 07/20/25 07/20/25 07/20/25 15:08 15:08 15:08 WBC RBC Hgb Hct MCV MCH MCHC RDW Plt Count Neut % (Auto) Lymph % (Auto) [place] % (Auto) Eos % (Auto) Baso % (Auto) Neut # (Auto) 5200 Lymph # (Auto) Cancelled 2100 [place] # (Auto) Cancelled 800 Eos # (Auto) Cancelled Baso # (Auto) PT INR APTT D-Dimer Sodium Potassium Chloride Carbon Dioxide BUN Creatinine Estimated GFR BUN/Creatinine Ratio Glucose Lactate Calcium Magnesium Total Bilirubin AST ALT Alkaline Phosphatase Total Creatine Kinase Troponin I NT-Pro-B Natriuret Pep Total Protein Albumin Globulin Albumin/Globulin Ratio Lipase SARS-CoV-2 (PCR) Influenza A (RT-PCR) Influenza B (RT-PCR) RSV (PCR) 07/20/25 07/20/25 07/20/25 15:08 15:08 15:08 WBC RBC Hgb Hct MCV MCH MCHC RDW Plt Count Neut % (Auto) Lymph % (Auto) [place] % (Auto) Eos % (Auto) Baso % (Auto) Neut # (Auto) Lymph # (Auto) [place] # (Auto) Eos # (Auto) 100 Baso # (Auto) Cancelled 0 PT Cancelled 21.5 H INR Cancelled APTT D-Dimer Sodium Potassium Chloride Carbon Dioxide BUN Creatinine Estimated GFR BUN/Creatinine Ratio Glucose Lactate Calcium Magnesium Total Bilirubin AST ALT Alkaline Phosphatase Total Creatine Kinase Troponin I NT-Pro-B Natriuret Pep Total Protein Albumin Globulin Albumin/Globulin Ratio Lipase SARS-CoV-2 (PCR) Influenza A (RT-PCR) Influenza B (RT-PCR) RSV (PCR) 07/20/25 07/20/25 07/20/25 15:08 15:08 15:08 WBC RBC Hgb Hct MCV MCH MCHC RDW Plt Count Neut % (Auto) Lymph % (Auto) [place] % (Auto) Eos % (Auto) Baso % (Auto) Neut # (Auto) Lymph # (Auto) [place] # (Auto) Eos # (Auto) Baso # (Auto) PT INR 1.9 H APTT Cancelled 39 H D-Dimer 1207 H Sodium Cancelled 137 Potassium Cancelled Chloride Carbon Dioxide BUN Creatinine Estimated GFR BUN/Creatinine Ratio Glucose Lactate Calcium Magnesium Total Bilirubin AST ALT Alkaline Phosphatase Total Creatine Kinase Troponin I NT-Pro-B Natriuret Pep Total Protein Albumin Globulin Albumin/Globulin Ratio Lipase SARS-CoV-2 (PCR) Influenza A (RT-PCR) Influenza B (RT-PCR) RSV (PCR) 07/20/25 07/20/25 07/20/25 15:08 15:08 15:08 WBC RBC Hgb Hct MCV MCH MCHC RDW Plt Count Neut % (Auto) Lymph % (Auto) [place] % (Auto) Eos % (Auto) Baso % (Auto) Neut # (Auto) Lymph # (Auto) [place] # (Auto) Eos # (Auto) Baso # (Auto) PT INR APTT D-Dimer Sodium Potassium 4.3 Chloride Cancelled 106 Carbon Dioxide Cancelled 15 L BUN Cancelled Creatinine Estimated GFR BUN/Creatinine Ratio Glucose Lactate Calcium Magnesium Total Bilirubin AST ALT Alkaline Phosphatase Total Creatine Kinase Troponin I NT-Pro-B Natriuret Pep Total Protein Albumin Globulin Albumin/Globulin Ratio Lipase SARS-CoV-2 (PCR) Influenza A (RT-PCR) Influenza B (RT-PCR) RSV (PCR) 07/20/25 07/20/25 07/20/25 15:08 15:08 15:08 WBC RBC Hgb Hct MCV MCH MCHC RDW Plt Count Neut % (Auto) Lymph % (Auto) [place] % (Auto) Eos % (Auto) Baso % (Auto) Neut # (Auto) Lymph # (Auto) [place] # (Auto) Eos # (Auto) Baso # (Auto) PT INR APTT D-Dimer Sodium Potassium Chloride Carbon Dioxide BUN 24 H Creatinine Cancelled 0.90 Estimated GFR Cancelled > 60 BUN/Creatinine Ratio Cancelled Glucose Lactate Calcium Magnesium Total Bilirubin AST ALT Alkaline Phosphatase Total Creatine Kinase Troponin I NT-Pro-B Natriuret Pep Total Protein Albumin Globulin Albumin/Globulin Ratio Lipase SARS-CoV-2 (PCR) Influenza A (RT-PCR) Influenza B (RT-PCR) RSV (PCR) 07/20/25 07/20/25 07/20/25 15:08 15:08 15:08 WBC RBC Hgb Hct MCV MCH MCHC RDW Plt Count Neut % (Auto) Lymph % (Auto) [place] % (Auto) Eos % (Auto) Baso % (Auto) Neut # (Auto) Lymph # (Auto) [place] # (Auto) Eos # (Auto) Baso # (Auto) PT INR APTT D-Dimer Sodium Potassium Chloride Carbon Dioxide BUN Creatinine Estimated GFR BUN/Creatinine Ratio 26.7 H Glucose Cancelled 112 H Lactate Calcium Cancelled 9.4 Magnesium 1.9 Total Bilirubin Cancelled AST ALT Alkaline Phosphatase Total Creatine Kinase Troponin I NT-Pro-B Natriuret Pep Total Protein Albumin Globulin Albumin/Globulin Ratio Lipase SARS-CoV-2 (PCR) Influenza A (RT-PCR) Influenza B (RT-PCR) RSV (PCR) 07/20/25 07/20/25 07/20/25 15:08 15:08 15:08 WBC RBC Hgb Hct MCV MCH MCHC RDW Plt Count Neut % (Auto) Lymph % (Auto) [place] % (Auto) Eos % (Auto) Baso % (Auto) Neut # (Auto) Lymph # (Auto) [place] # (Auto) Eos # (Auto) Baso # (Auto) PT INR APTT D-Dimer Sodium Potassium Chloride Carbon Dioxide BUN Creatinine Estimated GFR BUN/Creatinine Ratio Glucose Lactate Calcium Magnesium Total Bilirubin 3.8 H AST Cancelled 70 H ALT Cancelled 56 H Alkaline Phosphatase Cancelled Total Creatine Kinase Troponin I NT-Pro-B Natriuret Pep Total Protein Albumin Globulin Albumin/Globulin Ratio Lipase SARS-CoV-2 (PCR) Influenza A (RT-PCR) Influenza B (RT-PCR) RSV (PCR) 07/20/25 07/20/25 07/20/25 15:08 15:08 15:08 WBC RBC Hgb Hct MCV MCH MCHC RDW Plt Count Neut % (Auto) Lymph % (Auto) [place] % (Auto) Eos % (Auto) Baso % (Auto) Neut # (Auto) Lymph # (Auto) [place] # (Auto) Eos # (Auto) Baso # (Auto) PT INR APTT D-Dimer Sodium Potassium Chloride Carbon Dioxide BUN Creatinine Estimated GFR BUN/Creatinine Ratio Glucose Lactate Calcium Magnesium Total Bilirubin AST ALT Alkaline Phosphatase 138 H Total Creatine Kinase 26 L Troponin I Cancelled 0.027 NT-Pro-B Natriuret Pep Cancelled 22115 H Total Protein Cancelled Albumin Globulin Albumin/Globulin Ratio Lipase SARS-CoV-2 (PCR) Influenza A (RT-PCR) Influenza B (RT-PCR) RSV (PCR) 07/20/25 07/20/25 07/20/25 15:08 15:08 15:08 WBC RBC Hgb Hct MCV MCH MCHC RDW Plt Count Neut % (Auto) Lymph % (Auto) [place] % (Auto) Eos % (Auto) Baso % (Auto) Neut # (Auto) Lymph # (Auto) [place] # (Auto) Eos # (Auto) Baso # (Auto) PT INR APTT D-Dimer Sodium Potassium Chloride Carbon Dioxide BUN Creatinine Estimated GFR BUN/Creatinine Ratio Glucose Lactate Calcium Magnesium Total Bilirubin AST ALT Alkaline Phosphatase Total Creatine Kinase Troponin I NT-Pro-B Natriuret Pep Total Protein 8.1 Albumin Cancelled 4.7 Globulin Cancelled 3.4 Albumin/Globulin Ratio Cancelled Lipase SARS-CoV-2 (PCR) Influenza A (RT-PCR) Influenza B (RT-PCR) RSV (PCR) 07/20/25 07/20/25 07/20/25 15:08 15:30 18:30 WBC RBC Hgb Hct MCV MCH MCHC RDW Plt Count Neut % (Auto) Lymph % (Auto) [place] % (Auto) Eos % (Auto) Baso % (Auto) Neut # (Auto) Lymph # (Auto) [place] # (Auto) Eos # (Auto) Baso # (Auto) PT INR APTT D-Dimer Sodium Potassium Chloride Carbon Dioxide BUN Creatinine Estimated GFR BUN/Creatinine Ratio Glucose Lactate 2.2 H Calcium Magnesium Total Bilirubin AST ALT Alkaline Phosphatase Total Creatine Kinase Troponin I NT-Pro-B Natriuret Pep Total Protein Albumin Globulin Albumin/Globulin Ratio 1.4 Lipase 35 SARS-CoV-2 (PCR) Negative Influenza A (RT-PCR) Flu a negative Influenza B (RT-PCR) Flu b negative RSV (PCR) Negative 07/20/25 07/21/25 20:22 07:15 WBC 3.7 L D RBC 3.92 L Hgb 10.9 L Hct 32.5 L MCV 82.8 MCH 27.7 MCHC 33.5 RDW 20.3 H Plt Count 181 Neut % (Auto) 78.1 H Lymph % (Auto) 18.2 L [place] % (Auto) 3.0 Eos % (Auto) 0.1 L Baso % (Auto) 0.6 Neut # (Auto) 2900 Lymph # (Auto) 700 L [place] # (Auto) 100 Eos # (Auto) 0 Baso # (Auto) 0 PT INR APTT D-Dimer Sodium 137 Potassium 4.1 Chloride 107 Carbon Dioxide 18 L BUN 22 H Creatinine 0.80 Estimated GFR > 60 BUN/Creatinine Ratio 27.5 H Glucose 197 H Lactate 3.5 H Calcium 8.8 Magnesium Total Bilirubin AST ALT Alkaline Phosphatase Total Creatine Kinase Troponin I 0.016 NT-Pro-B Natriuret Pep 28058 H Total Protein Albumin Globulin Albumin/Globulin Ratio Lipase SARS-CoV-2 (PCR) Influenza A (RT-PCR) Influenza B (RT-PCR) RSV (PCR) PFSH Medical History (Updated 07/20/25 @ 18:50 by Juan Bowen MD) Cocaine abuse in remission PTSD (post-traumatic stress disorder) Cardiomyopathy Surgical History (Updated 07/20/25 @ 18:51 by Juan Bowen MD) History of gastric surgery H/O hand surgery H/O lithotripsy Family History (Updated 07/20/25 @ 18:52 by Juan Bowen MD) Mother Autoimmune disease Father Alzheimer dementia Social History (Updated 07/20/25 @ 18:52 by Juan Bowen MD) Smoking Status: Former smoker alcohol intake: current substance use type: former substance user and crack/cocaine Assessment & Plan Time-Based Coding :: [TOTAL MINUTES] spent with patient and on the chart (including review of chart, obtaining history, exam, reviewing outside data, placing orders, documenting exam and treatment plan, and counseling patient) on [DATE].
[2025-07-21] MEDS: SODIUM CHLORIDE 0.9% FLUSH 10 ML IV ×2 (10:12→21:58)
[2025-07-21] MEDS: APIXABAN 5 MG TABLET PO ×2 (10:14→21:57)
[2025-07-21 12:45] VITALS: BP 125/81; PULSE 73; RESP 23; TEMP 36.1; O2SAT 99
[2025-07-21 16:37] VITALS: BP 98/63; PULSE 75; RESP 20; TEMP 36.3; O2SAT 97
[2025-07-21 19:43] VITALS: BP 115/77; PULSE 73; RESP 18; TEMP 36.4; O2SAT 97
[2025-07-21 21:57] VITALS: BP 153/81; PULSE 67
[2025-07-22 05:49] LABS: Add Manual Diff / Slide Review NO; Hematocrit 32.9 % (41-53); Hemoglobin 10.9 g/dL (13.5-17.5); Lymphocytes Absolute Auto 1500 /uL (1100-4500); Mean Corpuscular HGB Conc 33.2 % (30-36); Mean Corpuscular Hemoglobin 28.0 PG (26-34); Mean Corpuscular Volume 84.3 fL (80-100); Platelet Count 184 X10^3/uL (150-400)
[2025-07-22 06:05] LABS: Blood Urea Nitrogen 25 mg/dL (9-20); Calcium 8.4 mg/dL (8.4-10.2); Carbon Dioxide 18 mmol/L (22-32); Chloride 108 mmol/L (98-107); Estimated Glomerular Filt Rate > 60 mL/min (>60); Glucose 132 mg/dL (70-99); HEMOLYSIS < 15 (0-50); Magnesium 1.8 mg/dL (1.6-2.3); Potassium 3.9 mmol/L (3.4-5.1); Sodium 136 mmol/L (137-145)
[2025-07-22 07:00] VITALS: BP 115/80; PULSE 69; RESP 17; TEMP 36.1; O2SAT 99
[2025-07-22] MEDS: APIXABAN 5 MG TABLET PO (09:22)
[2025-07-22] MEDS: SODIUM CHLORIDE 0.9% FLUSH 10 ML IV (09:23)
--- NOTE | 2025-07-22 12:48 | PC.NURSE ---
Day shift: Pt asleep after breakfast and wants to be left alone. Have gone in room several times to wake Pt but he mumbles and goes back to sleep. Dr Villanueva aware. Pt does have discharge orders.
--- NOTE | 2025-07-22 13:08 | CM.DANOTE ---
Initial DCP Assessment Visit Note Reviewed EMR and team rounds for pt's medical status and updates. Met with pt briefly at bedside to introduce self and role, pt was found to be sleeping, not easily awakened. Pt is independent at baseline, is mother is his primary support. He is , however from his for some time. He is reportedly homeless, however it's unclear to sort out based on his speech and somnolence. He has been medically cleared for home d/c, his mother will come and transport him. No CM d/c needs are identified at this time. Payor: [facility] No local PCP Pt is a 50 year-old M with a PMH of cardiomyopathy secondary to cocaine abuse, and a distant hx of pulmonary embolism. . [facility] with c/o SOB, mild respiratory distress, and increased weakness over the last several days. He did just have a recent hospitalization at [facility], however there were not records to review to determine his course there. He received breathing treatments in the ED, DuoNeb, IV dexamethasone, and was started on IV antibiotics for CT confirmed pneumonia. Today he is feeling much improved, and will d/c home on oral antibiotics. Discharge Planning/Care Management CM Discharge Assessment Start: 07/20/25 19:19 Freq: Status: Active Protocol: Document 07/22/25 13:06 DPL (Rec: 07/22/25 13:08 DPL [id number]) Discharge Planning Assessment Advance Directives? No History Provided By Patient,Medical Record Has Patient been No admitted in last 30 days? Prior Living Homeless Arrangements Household Members none Type of Relies on Others transporation used prior to admit Independent with ADL Yes 's Is patient alert and Yes oriented? Comment N/A Caregiver for No Another Comment No identified home d/c needs at this time. Barriers to No Discharge Discharge Plan Home Referrals Initiated None needed Whiteboard Updated Yes in Patient Room with name and ext. # of Pharmacy Assistant Review Status In Process Please Provide Date 07/22/25 Initial DC Assessment Was Performed
--- NOTE | 2025-07-22 14:23 | PC.NURSE ---
Day shift: Left unit at approx 1420 via WC. Taken by DIOR Wen. Pt's Mom is driving him home. Paperwork is signed and all questions answered. Pt has all personal belongings. scripts sent to Pt's pharmacy. Encouraged to get his scripts today and take them all as directed. Also encouraged to f/u with his PC MAUREEN.
== END 2025-07-22 14:26 | disposition home or self-care (01) | DRG 315 ==
LOC: ED 18:17 → AC 18:49
PROVIDERS: Emergency Medicine; Internal Medicine; Admitting Provider Family Medicine; Emergency Provider Emergency Medicine; Referring Provider Emergency Medicine; Visit Provider Family Medicine
DX: I42.7 Cardiomyopathy due to drug and external agent (principal); J81.1 Chronic pulmonary edema; R17 Unspecified jaundice; F43.10 Post-traumatic stress disorder, unspecified; T40.5X5A Adverse effect of cocaine, initial encounter; F14.988 Cocaine use, unspecified with other cocaine-induced disorder; Z86.711 Personal history of pulmonary embolism; Z87.891 Personal history of nicotine dependence
CPT/HCPCS: 36415; 71045; 71275; 80048; 80053; 81003; 82550; 83605; 83690; 83735; 83880; 84484; 85025; 85379; 85610; 85730; 87040; 87637; 93005; 93010; 93306; 96365; 96366; 96368; 96375; 99284; J0696; J1100; J1938; J2060; J7050; J7060